=== PATIENT | male | born 1950 | race Caucasian/White ===

== ENCOUNTER 2021-03-17 09:07 | Outpatient (CLI) | payer MEDICARE, SELFPAY ==
--- NOTE | 2021-03-17 09:30 | MR_ITS ---
WS: [id number] MRI LEFT SHOULDER HISTORY: INTERNAL DERANGEMENT OF LEFT SHOULDER COMPARISON: 02/16/2021 TECHNIQUE: Multiplanar sequences of the shoulder joint are submitted. Moderate AC joint hypertrophy. Increased fluid signal along the AC ligament consistent with a tear. S oft tissue and bone hypertrophy encroaching upon the supraspinatus. Moderate amount of fluid in the s ubacromial and subdeltoid bursa. Edema within the endplates of the clavicle and adjacent acromion. No os acromion. Very small caliber biceps tendon. There is increase fluid in the biceps tendon sheath. Insertion site tear involving the distal supraspinatus tendon. Full-thickness tendon tear extending o celina a width of 12 mm. There is additional tendinopathy. Additional partial insertion site tear involv ing the inferior articular surface of the infraspinatus tendon. Subscapularis tendon is also torn. Th e very distal subscapularis tendon is of increased fluid like signal. There is mild atrophy without e mauricio involving the subscapularis muscle. Mild narrowing of the glenohumeral joint. No labral tears are appreciated. MR/MR shoulder LT wo con* [id number] IMPRESSION: 1. Full-thickness distal supraspinatus tendon tear involving the insertion sit e also. 2. Insertion site tear distal supraspinatus and also the distal infraspinatus tendon tear along the tibial surface. 3. Moderate AC joint hypertrophy with encroachment upon the supraspinatus. 4. Small caliber biceps tendon in the bicipital groove. Suspect at least a par tial tear with retraction of a portion of the tendon.
== END 2021-03-17 09:08 | disposition home or self-care (01) ==
LOC: RADSHAW 09:12
PROVIDERS: PCP Physician Assistant; Visit Provider Physician Assistant
DX: M24.812 Other specific joint derangements of left shoulder, not elsewhere classified (principal); M75.102 Unspecified rotator cuff tear or rupture of left shoulder, not specified as traumatic
CPT/HCPCS: 73221

== ENCOUNTER 2021-04-20 07:00 | Outpatient (CLI) | payer MEDICARE, SELFPAY ==
--- NOTE | 2021-04-20 07:15 | USCV_ITS ---
Ariel Lugo Age: 70 Gender: M : 1950 Exam Date: 04/20/2021 07:29 Ordering Phys: Gabriella Grover MD ([email or web address]) Technologist: Exam Location: [facility] [place] Indication: CHEST PAIN BP: 135 / 75 HR: 75 Rhythm: Sinus Technical Quality: Adequate MEASUREMENTS (Male / Female) Normal Values 2D ECHO LV Diastolic Diameter PLAX 4.7 cm 4.2 - 5.9 / 3.9 - 5.3 cm LV Systolic Diameter PLAX 2.7 cm IVS Diastolic Thickness 0.8 cm 0.6 - 1.0 / 0.6 - 0.9 cm IVS Systolic Thickness 1.4 cm LVPW Diastolic Thickness 1.1 cm 0.6 - 1.0 / 0.6 - 0.9 cm LVPW Systolic Thickness 1.6 cm LVOT Diameter 2.1 cm LV Ejection Fraction 2D Teich 69.3 % LV Ejection Fraction MOD 2C 61.2 % LV Ejection Fraction 2C AL 61.8 % LA Diameter 4.9 cm LA Width 4.7 cm LA Height 6.0 cm RA Width 4.0 cm RA Height 5.4 cm Aorta at Sinotubular Diameter 2.6 cm M-MODE LV Diastolic Diameter MM 5.1 cm 4.2 - 5.9 / 3.9 - 5.3 cm LV Systolic Diameter MM 3.2 cm LV Ejection Fraction MM Teich 67.5 % IVS Diastolic Thickness MM 0.8 cm 0.6 - 1.0 / 0.6 - 0.9 cm IVS Systolic Thickness MM 1.4 cm LVPW Diastolic Thickness MM 1.1 cm 0.6 - 1.0 / 0.6 - 0.9 cm LVPW Systolic Thickness MM 1.8 cm RV Diastolic Diameter MM 2.4 cm Aortic Annulus Diameter 3.6 cm LA Ao Ratio MM 1.5 MV E Point Septal Separation 0.8 cm DOPPLER AV Peak Velocity 139.7 cm/s LVOT Peak Velocity 88.0 cm/s AV Area Cont Eq vti 2.4 cm squared AV Area Cont Eq pk 2.2 cm squared MV Area PHT 5.0 cm squared Mitral E to A Ratio 5.0 MV E' Velocity 59.0 cm/s Mitral E to MV E' Ratio 6.7 Mitral E to LV E' Lateral Ratio 5.6 Mitral E to LV E' Septal Ratio 8.5 TR Peak Velocity 273.0 cm/s TR Peak Gradient 29.8 mmHg Right Atrial Pressure 3.0 mmHg Pulmonary Artery Systolic Pressu 32.8 mmHg PV Peak Velocity 90.0 cm/s FINDINGS Left Ventricle Normal left ventricular size. LV systolic function is normal with EF of 55-60%. No regional wall motion abnormalities. Diastolic function is indeterminate because of atrial fibrillation. Right Ventricle The right ventricle is normal in size and function. Right Atrium The right atrium is normal in size. Left Atrium The left atrium is dilated Mitral Valve Structurally normal mitral valve without significant stenosis or prolapse. There is mild to moderate mitral regurgitation. Aortic Valve Structurally normal aortic valve without significant sclerosis or stenosis. There is no aortic regurgitation. Tricuspid Valve Structurally normal tricuspid valve without significant stenosis. Mild tricuspid regurgitation. RVSP is 35-40mmHg. Mild pulmonary hypertension Pulmonic Valve Structurally normal pulmonic valve without significant stenosis. There is trace pulmonic regurgitation. Pericardium Normal pericardium without effusion. Aorta Normal ascending aorta dimension. CONCLUSIONS LV systolic function is normal with EF of 55-60% Diastolic function is indeterminate because of atrial fibrillation Mild to moderate mitral regurgitation Mild pulmonary regurgitation Trace pulmonic regurgitation No comparison studies are available Bridger Cantu MD (Electronically Signed) Final Date: 24 April 2021 17:59 S
[2021-04-20 07:22] VITALS: BMI 36.0
--- NOTE | 2021-04-20 07:22 | ECG_ITS ---
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 Interpretive Statements NAME OF STUDY: LEXISCAN SESTAMIBI STRESS TEST INDICATION: CHEST PAIN, DYSPNEA ON EXERTION, A FIB PROCEDURE: At the baseline, the blood pressure was 153/92 mm Hg with a heart rate of 73 bpm. The electrocardiogram showed atrial fibrillation, normal axis and non specific ST changes. ??? The Lexiscan was infused over a period of 20 seconds. A total of 0.4 milligrams of Lexiscan was infused. The stress phase was continued for a total of 5 minutes. Heart rate at the end of the stress phase was 81 bpm with a blood pressure of 130/81 mm Hg. The EKG at the peak infusion revealed no significant ST-T wave changes. ??? Sestamibi was injected 20 seconds after the Lexiscan infusion. ??? Blood pressure at the end of the recovery phase was 138/85 mm Hg with a heart rate of 72 beats per minute. ??? CONCLUSION: 1. No significant EKG changes with the LexiScan infusion. 2. No LexiScan induced chest pain or cardiac arrhythmia. 3. Normal blood pressure and heart rate response. 4. Sestamibi/sestamibi perfusion scan pending; see separate report. Electronically Signed On 04-25-2021 7:39:12 CDT by Gabriella Grover M.D. [email or web address]
--- NOTE | 2021-04-20 07:23 | NMCV_ITS ---
NM melissa perf SPECT r/s* [id number] Ariel Lugo Age: 70 Gender: M : 1950 Exam Date: 04/20/2021 07:23 Ordering Phys: Gabriella Grover MD ([email or web address]) Technologist: CLOVER Yu Exam Location: [facility] Indications: CHEST PAIN STRESS TEST Please see separate stress test report in [facility] for full findings IMAGE PROTOCOL Rest/Stress 1 Lexiscan Day Radiopharmaceutical Dose (mCi) Administration Site Administered by Rest: Tc-99m 10.6 IV CLOVER Burrows Sestamibi Stress:Tc-99m 32.2 IV CLOVER Burrows Sestamibi Rest: 20-Apr-2021 60 Discovery 630 Stress: 20-Apr-2021 30 Discovery 630 0.4mg Lexiscan. Images obtained in supine and prone position. SPECT RESULTS Technical Quality: Excellent Raw Data Analysis: Normal Image Corrections: No attenuation or motion correction applied Summed Stress Score: 0 Summed Rest Score: 1 Summed Difference Score: 0 PERFUSION FINDINGS Small sized perfusion abnormality of mild severity of apical anterior, apical inferior and apical lateral maciel on rest images with improved tracer uptake in stress images. This is likely suggestive of attenuation artifact. FUNCTIONAL RESULTS (calculated via Gated SPECT) Stress Image LV EF (%): 79 Stress EDV (mL):109 TID: 0.95 Stress ESV (mL):23 FUNCTIONAL FINDINGS: The left ventricle is normal in size. Transient Ischemia Dilatation of 0.95. There is normal left ventricular systolic function. The left ventricular ejection fraction is normal with a value of 79%. There is normal left ventricular wall thickening with no regional wall abnormality. Normal end diastolic and end systolic volumes. IMPRESSIONS 1. Myocardial perfusion imaging is normal. Attenuation artifact noted in apical maciel. 2. Overall left ventricular systolic function is normal without regional wall motion abnormalities. 3. The left ventricular ejection fraction is normal with a value of 79%. 4. No coronary ischemia based on this study. Gabriella Grover MD (Electronically Signed) Final Date: 23 April 2021 15:10 S
[2021-04-20] MEDS: perflutren protein-a microsphr 0.22 mg/mL SDV 3 mL IV (07:58)
[2021-04-20] MEDS: regadenoson 0.4 Mg/5 ml Syringe IVP (09:30)
[2021-04-20 13:35] VITALS: BP 141/82; PULSE 75
== END 2021-04-20 07:01 | disposition home or self-care (01) ==
LOC: US 07:07 → CDL 07:21
PROVIDERS: PCP Physician Assistant; Visit Provider Internal Medicine Cardiovascular Disease
DX: R07.9 Chest pain, unspecified (principal); I48.91 Unspecified atrial fibrillation; R06.00 Dyspnea, unspecified; I34.0 Nonrheumatic mitral (valve) insufficiency
CPT/HCPCS: 78452; 93017; A9500; C8929; J2785; Q9956

== ENCOUNTER 2021-08-16 11:57 | Outpatient (RCR) | payer MEDICARE, SELFPAY | END 2021-08-20 23:59 | disposition home or self-care (01) | LOC: SPT 11:57 | PROVIDERS: PCP Physician Assistant; Referring Provider Orthopaedic Surgery; Visit Provider Orthopaedic Surgery | DX: Z47.89 Encounter for other orthopedic aftercare (principal) | CPT/HCPCS: 97161 ==

== ENCOUNTER 2021-08-21 06:00 | Outpatient (RCR) | payer MEDICARE, SELFPAY | END 2021-09-19 23:59 | disposition home or self-care (01) | LOC: SPT 06:00 | PROVIDERS: PCP Physician Assistant; Referring Provider Orthopaedic Surgery; Visit Provider Orthopaedic Surgery | DX: Z98.890 Other specified postprocedural states (principal); S46.092D Other injury of muscle(s) and tendon(s) of the rotator cuff of left shoulder, subsequent encounter; X58.XXXD Exposure to other specified factors, subsequent encounter | CPT/HCPCS: 97110; 97140 ==

== ENCOUNTER 2021-09-20 06:00 | Outpatient (RCR) | payer MEDICARE, SELFPAY | END 2021-10-11 23:59 | disposition home or self-care (01) | LOC: SPT 06:00 | PROVIDERS: PCP Physician Assistant; Referring Provider Orthopaedic Surgery; Visit Provider Orthopaedic Surgery | DX: Z48.89 Encounter for other specified surgical aftercare (principal); M25.512 Pain in left shoulder | CPT/HCPCS: 97110 ==

== ENCOUNTER 2022-01-04 05:21 | Inpatient (IN) | payer MEDICARE, SELFPAY ==
[2022-01-04] VITALS (11 sets, daily range): BP systolic 107–138; BP diastolic 65–94; PULSE 65–95; RESP 14–18; TEMP 36.6–37; O2SAT 92–99; BMI 34.9
--- NOTE | 2022-01-04 05:33 | W.ED.CHESTPA ---
Documented by User: Van Rajan MD 01/07/22 21:26 HPI - Chest Pain General: Chief Complaint: Chest Pain Stated Complaint: Chest Pain Time Seen by Provider: 01/04/22 05:33 History of Present Illness: Mr. Lugo is a 71-year-old gentleman with significant past medical history of hypertension, hyperlipidemia, diabetes, obesity, history of atrial fibrillation on anticoagulation who presents emerged department with chest pain. Symptom onset was approximately 4 AM woke him up from sleep. He describes severe intensity pressure like a elephant sitting on his chest. There is no significant radiation. There is mild epigastric component and shortness of breath related to pain with exertion. He had been at his baseline health. Course has persisted. No other specific changes in health, exacerbating, relieving factors identified. Pertinent past history: other Onset (ago): hour(s) Timing of current episode: constant Prior episodes: No Onset: during rest Pain location: substernal Severity: severe Quality: heaviness Review of Systems General: Reports: 10 or more systems reviewed and unremarkable except in HPI and below PFSH ED PFSH: Medical History Atrial fibrillation Controlled diabetes mellitus with diabetic polyneuropathy Enlarged heart HTN (hypertension) Hyperlipidemia Family History Father Aortic valve replaced CHF (congestive heart failure) Diabetes Family/Other Diabetes Other Atrial fibrillation Denies family history of Stroke Social History Smoking and tobacco status: former smoker Quit status (tobacco): has quit using tobacco Year quit tobacco: 30 years ago Second hand smoke exposure: No Smoking risk assessment/counseling performed?: Yes Alcohol intake: current Alcohol intake frequency: holidays/special occasions only Alcohol type: beer Desire information about alcohol rehabilitation?: No Counseling given: Yes Desire information about substance/drug rehabilitation?: No Counseling given: Yes Adopted: No Caregiver/support person: No Lives independently: Yes Household members: spouse, family and children Housing: House Marital status: Number of children: 3 Number of grandchildren: 10 Highest education level completed: Some College, No Degree service: No Current occupational status: retired Current occupational exposures/hazards: No Pets and animals: Yes Pets & animals: dog(s) and bird(s) History of recent travel: No Leisure activites: exercise and fishing Sexually active: Yes Current gender identity: Male Yessy/Druze: Druze Special yessy needs: No Agree to transfusion: Yes Financial difficulty paying for basics: Not Very Hard Physical Exam Const: COMMON NORMALS: alert GENERAL APPEARANCE: ill appearing and diaphoretic HENMT: COMMON NORMALS: normocephalic and atraumatic HEAD & SCALP: normocephalic and atraumatic Eye: COMMON NORMALS: conjunctivae normal CONJUNCTIVA: Yes conjunctivae normal SCLERA: sclerae normal Neck/C-Spine: COMMON NORMALS: supple GENERAL: Yes trachea midline Resp: COMMON NORMALS: normal respiratory effort and clear to auscultation bilaterally EFFORT & INSPECTION: Yes able to speak in complete sentences AUSCULTATION: clear to auscultation bilaterally Cardio: COMMON NORMALS: regular rate and regular rhythm RATE: regular rate RHYTHM: regular rhythm GI: COMMON NORMALS: Soft to palpation PALPATION: Yes Soft to palpation and No Tenderness to palpation present (GI) PERCUSSION: normal to percussion Extremity: GENERAL: Yes normal exam except as noted and No edema Neuro: COMMON NORMALS: moves all extremities SENSORIUM/ORIENTATION: Yes alert and No Orientation impaired Psych: COMMON NORMALS: mental status grossly normal and Normal thought process present THOUGHT PROCESS: Normal thought process present Course ED course: - Patient was seen and evaluated by me at bedside - Patient placed on cardiac monitors, IV access obtained - Initial evaluation notable for ill appearance, patient is diaphoretic and in distress secondary to pain - Symptom treatment ordered - Labs notable for no leukocytosis, normal hemoglobin. Metabolic panel pending. Initial troponin 21. Remainder of labs pending - Imaging notable for no lobar consolidation or pneumothorax - Patient care handed off to morning ED physician Dr. Joyce ideation of ED evaluation. Note: Click bubbles or prepopulated presley in note writing are used for assistance with data collection and billing and are inherently more limited than narrative and other text portions of this note. Please use narrative for additional clinical history and defer to narrative/free test for any case of contradictory information. If information appears in only free text or click bubble it should be considered present or absent as reported. Please contact note process description writer for clarifications of clinical information or contradictory information. MDM is a brief summary, contradictory or erroneous seeming information should be clarified and full note should be reviewed. Vital Signs: Vital signs: Vital Signs Temperature 98.5 F 01/07/22 20:00 Pulse Rate 86 01/07/22 20:00 Respiratory Rate 20 H 01/07/22 20:00 Blood Pressure 147/97 01/07/22 20:00 Pulse Oximetry 93 01/07/22 20:00 MDM - Chest Pain Medical Decision Making 71-year-old man with hypertension, hyperlipidemia, diabetes presenting to the emergency room due to chest pain that woke him up from sleep. Patient is ill-appearing on initial exam with diaphoresis. EKG without evidence of STEMI. Laboratory studies pending at time of patient care handoff to Dr. Joyce pending completion of ED evaluation. This patient was signed out to myself Dr. Joyce by Dr. Rajan at 0600 currently waiting on lab work to results patient presents emergency department is a 71-year-old gentleman presenting to the emergency department chief complaint of midsternal chest pain with no radiation started about 4:00 this morning woke him up from sleep patient has a known history of atrial atrial fibrillation which he is on Eliquis. The patient has been worked up previously by cardiology last stress test and nuclear medicine perfusion scan was obtained last April revealing left ventricular ejection fraction 55% with mild pulmonary regurgitation trace pulmonic regurgitation and moderate mitral regurg the stress test not reveal any obvious EKG changes or any changes in the Lexiscan the nuclear medicine perfusion scan was appear to be normal with no ischemic changes. Patient is complaining of mild diaphoresis reports the pain is isolated to the middle of his sternum coming going in waves reports nothing seems to make it better or worse. Patient reports no other associated symptoms. At this time we will continue to follow notified by nursing staff patient is hypotensive 70s over 40s this was after being provided fentanyl ordered prior to my arrival. Will be bolusing the patient and will continue to follow underlying concerns of pulmonary embolism versus dissection or aneurysm are prominent we will continue to follow. Patient's CAT scans actually came back unremarkable for any cardiac or pulmonary etiology however patient was found have acute pancreatitis. Due to this will be admitted the patient to Dr. Benz for further assessment and management Medical Records I reviewed the patient's medical records. Lab Data I reviewed the patient's lab results. : 01/07/22 05:40 01/07/22 05:40 Radiology Impressions Chest X-Ray 01/04/22 05:39 IMPRESSION: No acute cardiopulmonary abnormality. Chest/Abdomen/Pelvis CTA 01/04/22 06:29 IMPRESSION: No acute findings in the chest. IMPRESSION: Acute interstitial pancreatitis. No drainable fluid collections are seen. Abdomen Ultrasound 01/04/22 09:00 IMPRESSION: Cholelithiasis without evidence of cholecystitis. Abdomen/Pelvis CT 01/07/22 09:43 IMPRESSION: 1. Acute pancreatitis. 2. Mucosal thickening of the distal stomach and duodenum are likely reactive in nature. 3. Small bilateral pleural effusions with adjacent compressive atelectasis. 4. Cholelithiasis. Laboratory Results WBC 8.9 10^3/uL (4.0-10.0) 01/04/22 05:45 RBC 4.81 10^6/uL (4.1-5.3) 01/04/22 05:45 Hgb 15.1 g/dL (11.7-16.6) 01/04/22 05:45 Hct 44.6 % (42.0-52.0) 01/04/22 05:45 MCV 92.7 fl (80-94) 01/04/22 05:45 MCH 31.4 pg (28.0-34.0) 01/04/22 05:45 MCHC 33.9 g/dL (30.0-36.0) 01/04/22 05:45 RDW 13.9 % (12.1-15.1) 01/04/22 05:45 Plt Count 172 10^3/cmm (130-400) 01/04/22 05:45 MPV 11.3 fL (7.4-10.4) H 01/04/22 05:45 Neut % (Auto) 46.9 % 01/04/22 05:45 Lymph % (Auto) 38.9 % 01/04/22 05:45 Hamlin % (Auto) 8.0 % 01/04/22 05:45 Eos % (Auto) 5.4 % 01/04/22 05:45 Baso % (Auto) 0.7 % 01/04/22 05:45 Neut # (Auto) 4.16 10^3/uL (1.8-7.7) 01/04/22 05:45 Lymph # (Auto) 3.5 10^3/uL (0.8-4.8) 01/04/22 05:45 Hamlin # (Auto) 0.7 10^3/uL (0.2-0.9) 01/04/22 05:45 Eos # (Auto) 0.5 10^3/uL (0.0-0.8) 01/04/22 05:45 Baso # (Auto) 0.1 10^3/uL (0.0-0.1) 01/04/22 05:45 Nucleated RBC % (auto) 0 % 01/04/22 05:45 Nucleated RBCs # 0.0 /100WBC 01/04/22 05:45 Sodium 133 mmol/L (136-145) L 01/04/22 06:11 Potassium 3.3 mmol/L (3.5-5.1) L 01/04/22 06:11 Chloride 95 mmol/L (98-107) L 01/04/22 06:11 Carbon Dioxide 23 mmol/L (22-29) 01/04/22 06:11 Anion Gap 18.3 (5-19) 01/04/22 06:11 BUN 17 mg/dL (8-23) 01/04/22 06:11 Creatinine 1.8 mg/dL (0.7-1.2) H 01/04/22 06:11 GFR Calculation Not Reportable 01/04/22 06:11 Glucose 160 mg/dL (65-115) H 01/04/22 06:11 Calculated Osmolality 281 mOsm/kg (285-295) L 01/04/22 06:11 Calcium 9.7 mg/dL (8.5-10.5) 01/04/22 06:11 Total Bilirubin 0.8 mg/dL (0.15-1.2) 01/04/22 06:11 AST 49 U/L (0-40) H 01/04/22 06:11 ALT 32 U/L (0-41) 01/04/22 06:11 Alkaline Phosphatase 74 IU/L (40-130) 01/04/22 06:11 Troponin T Baseline 21 ng/L (0-15) H 01/04/22 06:11 Troponin T 120 Minute 21.68 ng/L (0-15) H 01/04/22 07:47 Delta Troponin T 0.68 ABS# (0-10) 01/04/22 07:47 Troponin T Hi Sens 6Hr 16.93 ng/L (0-15) H 01/04/22 11:45 Troponin T Hi Sens 6Hr Delta -4.07 ng/L (0-12) L 01/04/22 11:45 NT-Pro-B Natriuret Pep 373 pg/mL (0-125) H 01/04/22 06:11 Total Protein 6.8 g/dL (6.6-8.7) 01/04/22 06:11 Albumin 3.9 g/dL (3.5-5.2) 01/04/22 06:11 Globulin 2.9 g/dL (1.3-4.6) 01/04/22 06:11 Triglycerides 187 mg/dL (0-150) H 01/04/22 06:11 Lipase 3636 U/L (13-60) H 01/04/22 06:11 Procalcitonin 0.07 ng/mL (0-0.5) 01/04/22 06:11 EKG Data EKG 1: I personally reviewed and interpreted this EKG as follows: EKG interpretation date: 01/04/22 EKG interpretation time: 05:35 Interpretation: Twelve-lead EKG shows a rhythm at a rate of 80 No WI interval, QRS duration 93, QTc 480. Normal axis. Interpretation: Atrial fibrillation. Discharge Plan Discharge Patient Disposition: Admitted As Inpatient Admit Provider: Kamala Benz Clinical Impression: Atypical chest pain, Acute pancreatitis Condition: Stable Coding Level of Care Code ED Associate Professor Of Geology for Chg Fwd Documented by User: Carrington Joyce 01/04/22 13:03 HPI - Chest Pain General: Chief Complaint: Chest Pain Stated Complaint: Chest Pain Time Seen by Provider: 01/04/22 05:33 PFSH ED PFSH: Medical History Atrial fibrillation Controlled diabetes mellitus with diabetic polyneuropathy Enlarged heart HTN (hypertension) Hyperlipidemia Family History Father Aortic valve replaced CHF (congestive heart failure) Diabetes Family/Other Diabetes Other Atrial fibrillation Denies family history of Stroke Social History Smoking and tobacco status: former smoker Quit status (tobacco): has quit using tobacco Year quit tobacco: 30 years ago Second hand smoke exposure: No Smoking risk assessment/counseling performed?: Yes Alcohol intake: current Alcohol intake frequency: holidays/special occasions only Alcohol type: beer Desire information about alcohol rehabilitation?: No Counseling given: Yes Desire information about substance/drug rehabilitation?: No Counseling given: Yes Adopted: No Caregiver/support person: No Lives independently: Yes Household members: spouse, family and children Housing: House Marital status: Number of children: 3 Number of grandchildren: 10 Highest education level completed: Some College, No Degree service: No Current occupational status: retired Current occupational exposures/hazards: No Pets and animals: Yes Pets & animals: dog(s) and bird(s) History of recent travel: No Leisure activites: exercise and fishing Sexually active: Yes Current gender identity: Male Yessy/Druze: Druze Special yessy needs: No Agree to transfusion: Yes Financial difficulty paying for basics: Not Very Hard Course Vital Signs: Vital signs: Vital Signs Temperature 98.5 F 01/07/22 20:00 Pulse Rate 86 01/07/22 20:00 Respiratory Rate 20 H 01/07/22 20:00 Blood Pressure 147/97 01/07/22 20:00 Pulse Oximetry 93 01/07/22 20:00 MDM - Chest Pain Medical Decision Making This patient was signed out to myself Dr. Joyce by Dr. Rajan at 0600 currently waiting on lab work to results patient presents emergency department is a 71-year-old gentleman presenting to the emergency department chief complaint of midsternal chest pain with no radiation started about 4:00 this morning woke him up from sleep patient has a known history of atrial atrial fibrillation which he is on Eliquis. The patient has been worked up previously by cardiology last stress test and nuclear medicine perfusion scan was obtained last April revealing left ventricular ejection fraction 55% with mild pulmonary regurgitation trace pulmonic regurgitation and moderate mitral regurg the stress test not reveal any obvious EKG changes or any changes in the Lexiscan the nuclear medicine perfusion scan was appear to be normal with no ischemic changes. Patient is complaining of mild diaphoresis reports the pain is isolated to the middle of his sternum coming going in waves reports nothing seems to make it better or worse. Patient reports no other associated symptoms. At this time we will continue to follow notified by nursing staff patient is hypotensive 70s over 40s this was after being provided fentanyl ordered prior to my arrival. Will be bolusing the patient and will continue to follow underlying concerns of pulmonary embolism versus dissection or aneurysm are prominent we will continue to follow. Patient's CAT scans actually came back unremarkable for any cardiac or pulmonary etiology however patient was found have acute pancreatitis. Due to this will be admitted the patient to Dr. Benz for further assessment and management Lab Data : 01/07/22 05:40 01/07/22 05:40 Radiology Impressions Chest X-Ray 01/04/22 05:39 IMPRESSION: No acute cardiopulmonary abnormality. Chest/Abdomen/Pelvis CTA 01/04/22 06:29 IMPRESSION: No acute findings in the chest. IMPRESSION: Acute interstitial pancreatitis. No drainable fluid collections are seen. Abdomen Ultrasound 01/04/22 09:00 IMPRESSION: Cholelithiasis without evidence of cholecystitis. Abdomen/Pelvis CT 01/07/22 09:43 IMPRESSION: 1. Acute pancreatitis. 2. Mucosal thickening of the distal stomach and duodenum are likely reactive in nature. 3. Small bilateral pleural effusions with adjacent compressive atelectasis. 4. Cholelithiasis. Laboratory Results WBC 8.9 10^3/uL (4.0-10.0) 01/04/22 05:45 RBC 4.81 10^6/uL (4.1-5.3) 01/04/22 05:45 Hgb 15.1 g/dL (11.7-16.6) 01/04/22 05:45 Hct 44.6 % (42.0-52.0) 01/04/22 05:45 MCV 92.7 fl (80-94) 01/04/22 05:45 MCH 31.4 pg (28.0-34.0) 01/04/22 05:45 MCHC 33.9 g/dL (30.0-36.0) 01/04/22 05:45 RDW 13.9 % (12.1-15.1) 01/04/22 05:45 Plt Count 172 10^3/cmm (130-400) 01/04/22 05:45 MPV 11.3 fL (7.4-10.4) H 01/04/22 05:45 Neut % (Auto) 46.9 % 01/04/22 05:45 Lymph % (Auto) 38.9 % 01/04/22 05:45 Hamlin % (Auto) 8.0 % 01/04/22 05:45 Eos % (Auto) 5.4 % 01/04/22 05:45 Baso % (Auto) 0.7 % 01/04/22 05:45 Neut # (Auto) 4.16 10^3/uL (1.8-7.7) 01/04/22 05:45 Lymph # (Auto) 3.5 10^3/uL (0.8-4.8) 01/04/22 05:45 Hamlin # (Auto) 0.7 10^3/uL (0.2-0.9) 01/04/22 05:45 Eos # (Auto) 0.5 10^3/uL (0.0-0.8) 01/04/22 05:45 Baso # (Auto) 0.1 10^3/uL (0.0-0.1) 01/04/22 05:45 Nucleated RBC % (auto) 0 % 01/04/22 05:45 Nucleated RBCs # 0.0 /100WBC 01/04/22 05:45 Sodium 133 mmol/L (136-145) L 01/04/22 06:11 Potassium 3.3 mmol/L (3.5-5.1) L 01/04/22 06:11 Chloride 95 mmol/L (98-107) L 01/04/22 06:11 Carbon Dioxide 23 mmol/L (22-29) 01/04/22 06:11 Anion Gap 18.3 (5-19) 01/04/22 06:11 BUN 17 mg/dL (8-23) 01/04/22 06:11 Creatinine 1.8 mg/dL (0.7-1.2) H 01/04/22 06:11 GFR Calculation Not Reportable 01/04/22 06:11 Glucose 160 mg/dL (65-115) H 01/04/22 06:11 Calculated Osmolality 281 mOsm/kg (285-295) L 01/04/22 06:11 Calcium 9.7 mg/dL (8.5-10.5) 01/04/22 06:11 Total Bilirubin 0.8 mg/dL (0.15-1.2) 01/04/22 06:11 AST 49 U/L (0-40) H 01/04/22 06:11 ALT 32 U/L (0-41) 01/04/22 06:11 Alkaline Phosphatase 74 IU/L (40-130) 01/04/22 06:11 Troponin T Baseline 21 ng/L (0-15) H 01/04/22 06:11 Troponin T 120 Minute 21.68 ng/L (0-15) H 01/04/22 07:47 Delta Troponin T 0.68 ABS# (0-10) 01/04/22 07:47 Troponin T Hi Sens 6Hr 16.93 ng/L (0-15) H 01/04/22 11:45 Troponin T Hi Sens 6Hr Delta -4.07 ng/L (0-12) L 01/04/22 11:45 NT-Pro-B Natriuret Pep 373 pg/mL (0-125) H 01/04/22 06:11 Total Protein 6.8 g/dL (6.6-8.7) 01/04/22 06:11 Albumin 3.9 g/dL (3.5-5.2) 01/04/22 06:11 Globulin 2.9 g/dL (1.3-4.6) 01/04/22 06:11 Triglycerides 187 mg/dL (0-150) H 01/04/22 06:11 Lipase 3636 U/L (13-60) H 01/04/22 06:11 Procalcitonin 0.07 ng/mL (0-0.5) 01/04/22 06:11 Discharge Plan Discharge Patient Disposition: Admitted As Inpatient Admit Provider: Demar,Wray Clinical Impression: Atypical chest pain, Acute pancreatitis Condition: Stable Coding Level of Care Code ED Associate Professor Of Geology for Sarah Kirby
--- NOTE | 2022-01-04 05:39 | ECG_ITS ---
[facility] Test Date: 2022-01-04 Pat Name: Ariel Lugo Department: Room: Gender: Male Publishing Director: : 1950 Requested By: Van Rajan Order Number: [id number] Zara MD: Henry Puente M.D. Measurements Intervals [place] Rate: 80 P: MI: QRS: 14 QRSD: 93 T: 2 QT: 414 QTc: 480 Interpretive Statements ATRIAL FIBRILLATION ABNORMAL RHYTHM ECG INTERPRETATION BASED ON A DEFAULT AGE OF 40 YEARS No previous ECG available for comparison Electronically Signed On 01-04-2022 21:44:37 CDT by Henry Puente M.D. [email or web address] [id number] f
--- NOTE | 2022-01-04 05:39 | XRR_ITS ---
PROCEDURE INFORMATION: Exam: XR Chest Exam date and time: 01/04/2022 5:39 AM Age: 71 years old Clinical indication: Dyspnea; Patient HX: SOB this am; Additional info: Chest pain TECHNIQUE: Imaging protocol: XR of the chest. Views: 1 view. COMPARISON: shoulder LT wo con* [id number] 03/17/2021 9:39 AM FINDINGS: Lungs: No focal airspace disease. Pleural spaces: Unremarkable. No pleural effusion. No pneumothorax. Heart/Mediastinum: Cardiomediastinal silhouette is within normal limits. Bones/joints: Unremarkable. XR/XR chest 1V portable [id number] IMPRESSION: No acute cardiopulmonary abnormality.
[2022-01-04 05:52] LABS: Basophils # 0.1 10^3/uL (0.0-0.1); Basophils % 0.7 %; Eosinophils # 0.5 10^3/uL (0.0-0.8); Eosinophils % 5.4 %; Hematocrit 44.6 % (42.0-52.0); Hemoglobin 15.1 g/dL (11.7-16.6); Lymphocytes # 3.5 10^3/uL (0.8-4.8); Lymphocytes % 38.9 %; Mean Corpuscular HGB Conc 33.9 g/dL (30.0-36.0); Mean Corpuscular Hemoglobin 31.4 pg (28.0-34.0); Mean Corpuscular Volume 92.7 fl (80-94); Mean Platelet Volume 11.3 fL (7.4-10.4); Monocytes # 0.7 10^3/uL (0.2-0.9); Neutrophils # 4.16 10^3/uL (1.8-7.7); Neutrophils % 46.9 %; Nucleated Red Blood Cells % 0 %; Platelet Count 172 10^3/cmm (130-400); Red Blood Count 4.81 10^6/uL (4.1-5.3); Red Cell Distribution Width 13.9 % (12.1-15.1); White Blood Count 8.9 10^3/uL (4.0-10.0)
[2022-01-04] MEDS: fentaNYL 50 mcg/mL INJ 2mL IVP (06:00)
[2022-01-04] MEDS: aspirin 81 mg Chew Tablet 324 MG PO (06:00)
[2022-01-04] MEDS: sodium chloride 0.9% 1,000 ML 999 ML IV (06:05)
--- NOTE | 2022-01-04 06:29 | CTR_ITS ---
PROCEDURE INFORMATION: Exam: CTA Chest With Contrast Exam date and time: 01/04/2022 6:29 AM Age: 71 years old Clinical indication: Cardiovascular condition or disease; Atrial fibrillation and cardiomegaly; Angina and shortness of breath; Other: Disection vs aneurism; Difficulty breathing or dyspnea and shortness of breath; Additional info: Concerns for pulmonary embolism vs aortic aneurism vs dissection / PT presents to the emergency room with feeling of bricks on his chest/ some abd / back discomfort as well. PT has HX of enlarged heart and afib TECHNIQUE: Imaging protocol: Computed tomographic angiography of the chest with contrast. 3D rendering (Not supervised by radiologist): MIP and/or 3D reconstructed images were created by the technologist. Radiation optimization: All CT scans at this facility use at least one of these dose optimization techniques: automated exposure control; mA and/or kV adjustment per patient size (includes targeted exams where dose is matched to clinical indication); or iterative reconstruction. Contrast material: OMNI 350; Contrast volume: 95 ml; Contrast route: INTRAVENOUS (IV); COMPARISON: CR (CHEST, ) 01/04/2022 5:07 AM RADIATION DOSE METRICS: Total DLP (mGy-cm): 3249.81 FINDINGS: Pulmonary arteries: Normal. No pulmonary emboli. Aorta: Unremarkable. No aortic aneurysm. No aortic dissection. Lungs: Unremarkable. No consolidation. No masses. Pleural spaces: Unremarkable. No pneumothorax. No pleural effusion. Heart: Mild cardiomegaly. Heavy coronary artery calcification. Lymph nodes: Unremarkable. No enlarged lymph nodes. Bones/joints: Unremarkable. No acute fracture. Soft tissues: Unremarkable. PROCEDURE INFORMATION: Exam: CTA Abdomen and Pelvis With Contrast Exam date and time: 01/04/2022 6:29 AM Age: 71 years old Clinical indication: Cardiovascular condition or disease; Atrial fibrillation and cardiomegaly; Angina and shortness of breath; Other: Disection vs aneurism; Difficulty breathing or dyspnea and shortness of breath; Additional info: Concerns for pulmonary embolism vs aortic aneurism vs dissection / PT presents to the emergency room with feeling of bricks on his chest/ some abd / back discomfort as well. PT has HX of enlarged heart and afib TECHNIQUE: Imaging protocol: Computed tomographic angiography of the abdomen and pelvis with contrast material. 3D rendering (Not supervised by radiologist): MIP and/or 3D reconstructed images were created by the technologist. Radiation optimization: All CT scans at this facility use at least one of these dose optimization techniques: automated exposure control; mA and/or kV adjustment per patient size (includes targeted exams where dose is matched to clinical indication); or iterative reconstruction. Contrast material: OMNI 350; Contrast volume: 95 ml; Contrast route: INTRAVENOUS (IV); COMPARISON: CR (CHEST, ) 01/04/2022 5:07 AM RADIATION DOSE METRICS: Total DLP (mGy-cm): 3249.81 FINDINGS: Aorta: Mild burden of atherosclerotic plaque in the abdominal aorta and branch vessels. No aneurysm. Celiac trunk and mesenteric arteries: No occlusion or significant stenosis. Renal arteries: No occlusion or significant stenosis. Right iliac arteries: No occlusion or significant stenosis. Left iliac arteries: No occlusion or significant stenosis. Liver: No mass. Gallbladder and bile ducts: Cholelithiasis. Pancreas: There is edema and ill-defined fluid about the pancreas. No drainable fluid collection. No main pancreatic ductal dilation. Spleen: Left upper quadrant splenule. Adrenal glands: Unremarkable. No mass. Kidneys and ureters: Unremarkable. No solid mass. No hydronephrosis. Stomach and bowel: Unremarkable. No obstruction. No mucosal thickening. Appendix: No evidence of appendicitis. Intraperitoneal space: Unremarkable. No free air. No significant fluid collection. Lymph nodes: Unremarkable. No enlarged lymph nodes. Urinary bladder: Unremarkable. No mass. Reproductive: Unremarkable as visualized. Bones/joints: No acute fracture. No dislocation. Soft tissues: Unremarkable. Other findings: There is mild stranding about the SMV. Unable to assess venous patency due to contrast bolus timing. CT/CT angio chest abdomen pelvis IMPRESSION: No acute findings in the chest. IMPRESSION: Acute interstitial pancreatitis. No drainable fluid collections are seen.
--- NOTE | 2022-01-04 06:39 | PC.NURSE ---
/blood pressures pt became diaphoretic while up to bathroom. pt was hypotensive once back in bed and VS rechecked. pt's BP at that time was 78/56. Fluids started and pt placed supine for perfusion. pt's oxygen noted to be 88-89% on RA and placed on 3L/NC and is now 98%. pt's BP improving and is currently 97/64.
[2022-01-04 06:46] LABS: Troponin(5th) Baseline 21 ng/L (0-15)
[2022-01-04 06:53] LABS: Albumin Level 3.9 g/dL (3.5-5.2); Alkaline Phosphatase 74 IU/L (40-130); Blood Urea Nitrogen 17 mg/dL (8-23); Calcium 9.7 mg/dL (8.5-10.5); Carbon Dioxide 23 mmol/L (22-29); Chloride 95 mmol/L (98-107); Globulin 2.9 g/dL (1.3-4.6); Glucose 160 mg/dL (65-115); NT Pro B Type Natriuretic Pept 373 pg/mL (0-125); Osmolality Calculated 281 mOsm/kg (285-295); Sodium 133 mmol/L (136-145); Total Bilirubin 0.8 mg/dL (0.15-1.2); Total Protein 6.8 g/dL (6.6-8.7)
[2022-01-04 06:55] LABS: Alanine Aminotransferase 32 U/L (0-41); Anion Gap 18.3 (5-19); Aspartate Amino Transferase 49 U/L (0-40); Potassium 3.3 mmol/L (3.5-5.1)
[2022-01-04] MEDS: iohexol 350 mg/mL 100 mL Btl IV (07:30)
[2022-01-04] MEDS: ondansetron 2 mg/ML SDV 2 mL 4 MG IVP ×2 (07:31→21:02)
[2022-01-04 07:32] LABS: Lipase 3636 U/L (13-60)
--- NOTE | 2022-01-04 07:39 | ECG_ITS ---
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 Measurements Intervals [place] Rate: P: SD: QRS: QRSD: T: QT: QTc: Interpretive Statements Atrial fibrillation with a controlled ventricular response rate ATYPICAL ECG WARNING: DATA QUALITY MAY AFFECT INTERPRETATION Compared to ECG 01/04/2022 05:34:48 Atrial fibrillation no longer present Electronically Signed On 01-04-2022 22:00:26 CDT by Henry Puente M.D. [email or web address] [id number]
--- NOTE | 2022-01-04 08:07 | PC.NURSE ---
pt refused pain medication
[2022-01-04 08:13] LABS: Troponin 5 2HR 21.68 ng/L (0-15)
[2022-01-04 08:20] LABS: Troponin 5 2HR Delta 0.68 ABS# (0-10)
--- NOTE | 2022-01-04 09:00 | USR_ITS ---
PROCEDURE INFORMATION: Exam: US Abdomen, Limited; Right Upper Quadrant Exam date and time: 01/04/2022 9:25 AM Age: 71 years old Clinical indication: Abdominal pain; Additional info: Acute pancreatitis with colelithiasis on CT TECHNIQUE: Imaging protocol: US abdomen. Real time ultrasound with image documentation. Limited exam focused on the right upper quadrant. COMPARISON: CT angio chest abdomen pelvis 01/04/2022 7:18 AM FINDINGS: Liver: Normal. No masses. Gallbladder: Gallstone noted. There is no gallbladder wall thickening. Negative sonographic Samaniego's sign. Common bile duct: Normal. No stones. No dilation. Pancreas: Visualized pancreas is unremarkable. Right kidney: Normal. No mass. No hydronephrosis. US/US abdomen limited [id number] IMPRESSION: Cholelithiasis without evidence of cholecystitis.
--- NOTE | 2022-01-04 11:39 | ECG_ITS ---
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 Measurements Intervals [place] Rate: 72 P: [place]: QRS: 184 QRSD: 108 T: 191 QT: 436 QTc: 477 Interpretive Statements ATRIAL FIBRILLATION POSSIBLE RIGHT VENTRICULAR HYPERTROPHY [SOME/ALL OF: PROMINENT R IN V1, LATE TRANSITION, RAD, CARMELA, SSS] LATERAL MYOCARDIAL INFARCTION , OF INDETERMINATE AGE [40+ ms Q WAVE AND/OR ST/T ABNORMALITY IN I/aVL/V5/V6] Compared to ECG 01/04/2022 06:30:40 Myocardial infarct finding now present Electronically Signed On 01-04-2022 22:02:27 CDT by Henry Puente M.D. [id number]
[2022-01-04 12:14] LABS: Troponin 5 6HR 16.93 ng/L (0-15)
--- NOTE | 2022-01-04 12:14 | PC.NURSE ---
pt declines pain medication at this time
[2022-01-04 12:20] LABS: Troponin 5 6HR Delta -4.07 ng/L (0-12)
--- NOTE | 2022-01-04 12:52 | PM.HP ---
Providers/Chief Complaint Primary Care Provider: Lissette Lucio Chief Complaint: Chest Pain History of Present Illness Ariel Lugo is a 71 year old male who presented to the hospital with chief complaint of worsening midepigastric pain. Patient is stating that he woke up around 4 AM with midepigastric pain which was radiating towards his chest. He is describing his pain as sharp pain which gets worse on any kind of movement. He has not experienced any emesis however experiencing nausea. He would not describe his pain as pressure-like sensation, about 7 months ago he had cardiac work-up stress test was negative. This time he has not experienced any diarrhea, fever change in antibiotics or his diet. No previous pancreatitis episodes. He has history of actinic keratosis. Did present to the ER for worsening of pain. He is on anticoagulating agent for his A. fib in the ER he was diagnosed with pancreatitis, potassium 3.3 Creatinine 1.8 I have started him on regular diet, potassium repleted Change Eliquis dose to low-dose Keep him on clear liquids Trend lipase Cholelithiasis without cholecystitis Concern for passage of gallstones No active signs of cholangitis He is afebrile Bilirubin is normal mild transaminases abnormality noted In the ER he was given fentanyl, normal saline, aspirin and nitroglycerin, troponin not significantly high, EKG without ischemic or infarctive changes Review of Systems Const: Reports: body aches and change in appetite Eyes: Denies: change in vision ENMT: Denies: throat pain Card: Reports: chest pain Resp: Denies: dyspnea GI: Reports: abdominal pain and nausea; Denies: vomiting : Denies: flank pain Musc: Denies: neck pain Skin/Breast: Reports: lesions Neuro: Denies: headache(s) Psych: Denies: anxiety Endo: Denies: polyuria Oneil/Lymph: Denies: easy bruising All/Imm: Denies: urticaria Medications/Allergies Home Medications Medication Instructions Recorded Confirmed Last Taken Type allopurinol 100 mg tablet 100 mg PO BID 01/24/21 01/04/22 01/03/22 History atorvastatin 80 mg tablet 80 mg PO BEDTIME 01/24/21 01/04/22 01/03/22 History glipizide 10 mg tablet 10 mg PO QAM 01/24/21 01/04/22 01/03/22 History famotidine 40 mg tablet 40 mg PO DAILY 02/27/21 01/04/22 01/03/22 History lisinopril 20 1 tab PO BID 02/27/21 01/04/22 Unknown History mg-hydrochlorothiazide 12.5 mg tablet atenolol 100 mg tablet 100 mg PO QAM tab 02/28/21 01/04/22 01/03/22 History Diabetic shoes with 3 sets insoles #1 ea 07/25/21 01/04/22 Unknown Rx insulin NPH isoph U-100 human 100 See Rx Instructions SUBCUT BID 11/29/21 01/04/22 01/04/22 History unit/mL (3 mL) subcutaneous pen (Humulin N NPH U-100 Insulin KwikPen) potassium chloride 10 mEq 20 meq PO DAILY cap 11/29/21 01/04/22 Unknown History capsule,extended release Vitamin B-12 1 tab PO DAILY 01/04/22 01/04/22 Unknown History Vitamin D3 1 cap PO DAILY 01/04/22 01/04/22 Unknown History amlodipine 5 mg tablet 5 mg PO DAILY 01/04/22 01/04/22 01/03/22 History apixaban 5 mg tablet (Eliquis) 5 mg PO BID 01/04/22 01/04/22 01/03/22 History ascorbic acid (vitamin C) 500 mg 500 mg PO DAILY 01/04/22 01/04/22 Unknown History tablet (Vitamin C) multivitamin 1 tab PO DAILY 01/04/22 01/04/22 Unknown History terazosin 10 mg capsule 10 mg PO BEDTIME 01/04/22 01/04/22 Unknown History Allergies Allergy/AdvReac Type Severity Reaction Status Date / Time No Known Allergies Allergy Verified 01/04/22 11:07 PFSH Acute PFSH: Medical History Atrial fibrillation Controlled diabetes mellitus with diabetic polyneuropathy Enlarged heart HTN (hypertension) Hyperlipidemia Family History Father Aortic valve replaced CHF (congestive heart failure) Diabetes Family/Other Diabetes Other Atrial fibrillation Denies family history of Stroke Social History Smoking and tobacco status: former smoker Quit status (tobacco): has quit using tobacco Year quit tobacco: 30 years ago Second hand smoke exposure: No Smoking risk assessment/counseling performed?: Yes Alcohol intake: current Alcohol intake frequency: holidays/special occasions only Alcohol type: beer Desire information about alcohol rehabilitation?: No Counseling given: Yes Desire information about substance/drug rehabilitation?: No Counseling given: Yes Adopted: No Caregiver/support person: No Lives independently: Yes Household members: spouse, family and children Housing: House Marital status: Number of children: 3 Number of grandchildren: 10 Highest education level completed: Some College, No Degree service: No Current occupational status: retired Current occupational exposures/hazards: No Pets and animals: Yes Pets & animals: dog(s) and bird(s) History of recent travel: No Leisure activites: exercise and fishing Sexually active: Yes Current gender identity: Male Yessy/Latter Day: Shinto Special yessy needs: No Agree to transfusion: Yes Financial difficulty paying for basics: Not Very Hard Vitals/I&O/Wt Last Vital Signs Temp 97.9 F 01/04/22 05:25 Pulse 78 01/04/22 12:11 Resp 18 01/04/22 12:11 BP 125/85 01/04/22 12:11 Pulse Ox 96 01/04/22 12:11 Weight last 48 hrs Weight 104.326 kg Physical Exam Narrative: male Local tenderness midepigastric region Euvolemic Obese Laying flat Nonfocal neuro exam EOMI, PERRLA Actinic keratosis On room air Saturating well Hemodynamically stable No signs of edema S1, [id number] Data : 01/04/22 05:45 01/04/22 06:11 A&P Assessment and plan (1) Atypical chest pain: Status: Acute (2) Acute pancreatitis: Status: Acute (3) Controlled diabetes mellitus with diabetic polyneuropathy: Status: Acute Qualifiers: Diabetes mellitus type: type 2 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 mellitus 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: without regional intermodal truck driver 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 Qualified Code(s): E11.42 - Type 2 diabetes mellitus with diabetic polyneuropathy (4) [place], bilateral: Status: Acute Plan Acute pancreatitis Cholelithiasis suspicion is high for passage of gallstone which could have caused pancreatic inflammation, no CBD dilation No signs of cholangitis Check triglyceride as she is diabetic If triglycerides above 500 he will need insulin along D5, he will need ICU management I would not add any antibiotics for now Start lactic ringer, Hypokalemia: Repleted Hold amlodipine and allopurinol IV fluid hydration Dilaudid for analgesia Keep her on clear liquids Trend lipase level Is symptoms are related to pancreatitis, troponins without significant delta EKG without ischemic or infarctive changes Full code Clear liquid diet Actinic keratosis without acute exacerbation A. 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
[2022-01-04 13:43] LABS: Procalcitonin 0.07 ng/mL (0-0.5)
[2022-01-04 18:21] LABS: Triglycerides 187 mg/dL (0-150)
[2022-01-04] MEDS: lidocaine 1% 5 ML in potassium chloride premix 100 ML 25 ML IV (20:53)
[2022-01-04] MEDS: lactated ringers 1,000 ML 100 ML IV (20:55)
[2022-01-04] MEDS: pantoprazole 40 mg SDV IVP (21:01)
[2022-01-04] MEDS: terazosin 5 mg Capsule 10 MG PO (21:01)
[2022-01-04] MEDS: apixaban 5 mg Tablet 2.5 MG PO (21:02)
[2022-01-04] MEDS: HYDROmorphone 1 mg/mL INJ 1 mL 0.4 MG IVP (21:21)
[2022-01-05] VITALS (9 sets, daily range): BP systolic 104–155; BP diastolic 71–90; PULSE 59–104; RESP 14–18; TEMP 36.3–37.2; O2SAT 90–95
[2022-01-05 05:23] LABS: Basophils % 0.1 %; Eosinophils % 0.1 %; Hematocrit 46.6 % (42.0-52.0); Hemoglobin 15.9 g/dL (11.7-16.6); Lymphocytes # 0.8 10^3/uL (0.8-4.8); Lymphocytes % 5.7 %; Mean Corpuscular HGB Conc 34.1 g/dL (30.0-36.0); Mean Corpuscular Hemoglobin 31.6 pg (28.0-34.0); Mean Corpuscular Volume 92.6 fl (80-94); Mean Platelet Volume 11.2 fL (7.4-10.4); Monocytes # 0.8 10^3/uL (0.2-0.9); Monocytes % 5.9 %; Neutrophils # 12.58 10^3/uL (1.8-7.7); Neutrophils % 87.9 %; Nucleated Red Blood Cells % 0 %; Platelet Count 173 10^3/cmm (130-400); Red Blood Count 5.03 10^6/uL (4.1-5.3); Red Cell Distribution Width 14.4 % (12.1-15.1); White Blood Count 14.3 10^3/uL (4.0-10.0)
[2022-01-05 05:45] LABS: Alanine Aminotransferase 27 U/L (0-41); Albumin Level 3.9 g/dL (3.5-5.2); Alkaline Phosphatase 75 IU/L (40-130); Aspartate Amino Transferase 31 U/L (0-40); Blood Urea Nitrogen 23 mg/dL (8-23); Calcium 9.4 mg/dL (8.5-10.5); Carbon Dioxide 25 mmol/L (22-29); Chloride 97 mmol/L (98-107); Globulin 2.7 g/dL (1.3-4.6); Glucose 182 mg/dL (65-115); Lipase 214 U/L (13-60); Magnesium 1.8 mg/dL (1.7-2.3); Osmolality Calculated 288 mOsm/kg (285-295); Sodium 135 mmol/L (136-145); Total Bilirubin 1.2 mg/dL (0.15-1.2); Total Protein 6.6 g/dL (6.6-8.7)
[2022-01-05] MEDS: lactated ringers 1,000 ML 100 ML IV ×3 (06:21→23:38)
[2022-01-05] MEDS: pantoprazole 40 mg SDV IVP ×2 (08:28→16:39)
[2022-01-05] MEDS: apixaban 5 mg Tablet 2.5 MG PO ×2 (08:29→16:38)
[2022-01-05] MEDS: ascorbic acid 500 mg Tablet PO (08:29)
[2022-01-05] MEDS: famotidine 20 mg Tablet 40 MG PO (08:29)
[2022-01-05] MEDS: HYDROmorphone 1 mg/mL INJ 1 mL 0.4 MG IVP (08:37)
--- NOTE | 2022-01-05 10:48 | PC.CHAP ---
Pastoral Care Encounter/Spiritual Assessment Type of Contact [] Declined supervisor tan room visit [] Patient/Family/Request visit [] Outpatient visit [] Follow-up visit [] Physician referral [] Code/Alert [x] Routine visit [] Staff referral [] Actively dying [x] Patient sleeping [] Family support [] [] Out of room [] Palliative care [] [] Receiving care in room [] Pre-surgical visit [] Trauma [] Long length of stay [] ICU visit [] Other: Relational/Emotional Strength [] Patient feels connected with others/family/visitors/staff [] Distress [] Loneliness/isolation [] Abandonment Spirituality of Patient [] Person of Yessy [] Attends Sabianism of their Yessy [] Believes in Prayer [] Reads Bible or Mandaen materials [] There are Spiritual issues to be addressed Turbine Technician Interventions [] Prayer [] Active listening [] Non-anxious presence [] Spiritual/emotional support [] Crisis/trauma care [] Spiritual counseling [] Bereavement support [] Provided bereavement packet [] Provided Bible/devotional materials [] Provided toy/stuffed animal, coloring book to patient or family member [] Provided Communion [] Anointing/[place] [] Salvation [] Completed spiritual assessment [] Other: Impact on Illness or Injury [] Angry [] Fearful [] Anxious [] Often cries [] Exhaustion [] Unable to work [] Unable to attend alevism [] Unable to walk/stand [] Unable to read [] Unable to drive [] Unable to eat/drink [] Unable to sleep [] Unable to be with family [] Patient intubated [] Other: Summary Time spent with patient
--- NOTE | 2022-01-05 12:36 | P.PN_ITS ---
Subjective Subjective: Patient was seen this morning, he continues to complain of epigastric discomfort, pain radiating to his back, nausea after his morning liquid breakfast, abdomen is bit more distended Vitals/I&O/Wt Last Vital Signs Temp 98.7 F 01/05/22 11:27 Pulse 99 01/05/22 11:27 Resp 16 01/05/22 11:27 BP 143/90 01/05/22 11:27 Pulse Ox 91 01/05/22 11:27 01/04/22 01/05/22 01/05/22 22:59 06:59 14:59 Intake Total 1048.333 / 1048.333 480 / 480 Balance 1048.333 / 1048.333 480 / 480 Weight last 48 hrs Weight 104.326 kg Physical Exam Const: COMMON NORMALS: no acute distress and patient oriented x3 Resp: COMMON NORMALS: normal respiratory effort, No retractions, No use of accessory muscles and clear to auscultation bilaterally AUSCULTATION: clear to auscultation bilaterally Cardio: COMMON NORMALS: regular rate, regular rhythm, S1 normal heart sound present and S2 normal heart sound present RATE: regular rate RHYTHM: regular rhythm HEART SOUNDS: S1 normal heart sound present and S2 normal heart sound present GI: COMMON NORMALS: Normal to inspection, nondistended, normoactive bowel sounds present AUSCULTATION: Yes Hypoactive bowel sounds present PALPATION: Yes Tenderness to palpation present (GI) (Epigastric discomfort) Extremity: COMMON NORMALS: no pedal edema Neuro: COMMON NORMALS: patient oriented x3 Data : 01/05/22 04:51 01/05/22 04:51 A&P Assessment and plan (1) Atypical chest pain: Status: Acute (2) Acute pancreatitis: Status: Acute (3) Controlled diabetes mellitus with diabetic polyneuropathy: Status: Acute Qualifiers: Diabetes mellitus type: type 2 Diabetes mellitus penitentiary insulin use: without penitentiary use Qualified Code(s): E11.42 - Type 2 diabetes mellitus with diabetic polyneuropathy (4) [place], bilateral: Status: Acute Plan Acute pancreatitis Cholelithiasis suspicion is high for passage of gallstone which could have caused pancreatic inflammation, no CBD dilation No signs of cholangitis Triglycerides triglycerides 187 Hold off on antibiotics Continue IV fluids Hypokalemia: Repleted Hold amlodipine and allopurinol IV fluid hydration Dilaudid for analgesia N.p.o. Trend lipase Will consider doing a repeat CT scan in 24 to 48 hours if symptoms persist beyond being n.p.o. for the next 24 hours we will consider starting TPN Full code Clear liquid diet Actinic keratosis without acute exacerbation A. 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
[2022-01-05] MEDS: terazosin 5 mg Capsule 10 MG PO (20:22)
[2022-01-06] VITALS (7 sets, daily range): BP systolic 125–166; BP diastolic 73–97; PULSE 76–118; RESP 16–20; TEMP 36.6–37.3; O2SAT 91–94
[2022-01-06 05:58] LABS: Basophils % 0.3 %; Eosinophils % 0.2 %; Hematocrit 45.1 % (42.0-52.0); Hemoglobin 14.9 g/dL (11.7-16.6); Lymphocytes # 1.3 10^3/uL (0.8-4.8); Lymphocytes % 10.1 %; Mean Corpuscular Hemoglobin 31.2 pg (28.0-34.0); Mean Corpuscular Volume 94.5 fl (80-94); Mean Platelet Volume 11.4 fL (7.4-10.4); Monocytes # 1.1 10^3/uL (0.2-0.9); Monocytes % 9.1 %; Neutrophils # 10.08 10^3/uL (1.8-7.7); Nucleated Red Blood Cells % 0 %; Platelet Count 143 10^3/cmm (130-400); Red Blood Count 4.77 10^6/uL (4.1-5.3); Red Cell Distribution Width 14.4 % (12.1-15.1); White Blood Count 12.6 10^3/uL (4.0-10.0)
[2022-01-06 06:18] LABS: Alanine Aminotransferase 22 U/L (0-41); Albumin Level 3.5 g/dL (3.5-5.2); Alkaline Phosphatase 69 IU/L (40-130); Anion Gap 14.9 (5-19); Aspartate Amino Transferase 25 U/L (0-40); Blood Urea Nitrogen 23 mg/dL (8-23); C Reactive Protein 84.9 mg/L (0.0-4.9); Calcium 9.3 mg/dL (8.5-10.5); Carbon Dioxide 24 mmol/L (22-29); Chloride 99 mmol/L (98-107); Globulin 2.8 g/dL (1.3-4.6); Glucose 171 mg/dL (65-115); Lipase 91 U/L (13-60); Magnesium 1.9 mg/dL (1.7-2.3); Osmolality Calculated 286 mOsm/kg (285-295); Phosphorus 2.1 mg/dL (2.5-4.5); Potassium 3.9 mmol/L (3.5-5.1); Sodium 134 mmol/L (136-145); Total Bilirubin 1.7 mg/dL (0.15-1.2); Total Protein 6.3 g/dL (6.6-8.7)
[2022-01-06] MEDS: ascorbic acid 500 mg Tablet PO (08:14)
[2022-01-06] MEDS: apixaban 5 mg Tablet 2.5 MG PO ×2 (08:15→18:00)
[2022-01-06] MEDS: phosphorus 250 mg Tablet 500 MG PO (08:15)
[2022-01-06] MEDS: famotidine 20 mg Tablet 40 MG PO (08:15)
[2022-01-06] MEDS: pantoprazole 40 mg SDV IVP ×2 (08:16→17:59)
[2022-01-06] MEDS: magnesium sulfate premix 2 GM/50 ML PIGGYBACK IV (08:16)
[2022-01-06] MEDS: lactated ringers 1,000 ML 100 ML IV ×2 (08:29→21:13)
--- NOTE | 2022-01-06 09:18 | PM.PN ---
Subjective Subjective: Patient was seen this morning, he tells me that he had a good night, continues to have epigastric discomfort, bloating sensation, has not had a bowel movement, no fevers overnight, Vitals/I&O/Wt Last Vital Signs Temp 97.8 F 01/06/22 07:50 Pulse 76 01/06/22 08:16 Resp 20 H 01/06/22 08:16 BP 141/97 01/06/22 07:50 Pulse Ox 94 01/06/22 08:16 01/05/22 01/06/22 01/06/22 22:59 06:59 14:59 Intake Total 800 / 2235 888.333 / 888.333 Balance 800 / 2235 888.333 / 888.333 Physical Exam Const: COMMON NORMALS: no acute distress and patient oriented x3 Resp: COMMON NORMALS: normal respiratory effort, No retractions, No use of accessory muscles and clear to auscultation bilaterally AUSCULTATION: clear to auscultation bilaterally Cardio: COMMON NORMALS: regular rate, regular rhythm, S1 normal heart sound present and S2 normal heart sound present RATE: regular rate RHYTHM: regular rhythm HEART SOUNDS: S1 normal heart sound present and S2 normal heart sound present GI: COMMON NORMALS: Normal to inspection, nondistended, normoactive bowel sounds present PALPATION: Yes Tenderness to palpation present (GI) (In the epigastrium) Extremity: COMMON NORMALS: no pedal edema Neuro: COMMON NORMALS: patient oriented x3 Data : 01/06/22 05:09 01/06/22 05:09 A&P Assessment and plan (1) Atypical chest pain: Status: Acute (2) Acute pancreatitis: Status: Acute (3) Controlled diabetes mellitus with diabetic polyneuropathy: Status: Acute Qualifiers: Diabetes mellitus type: type 2 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 Trend lipase Will consider doing a repeat CT scan in 24 to 48 hours if symptoms persist beyond being n.p.o. for the next 24 hours we will consider starting TPN Full code Continue n.p.o. Actinic keratosis without acute exacerbation A. fib without RVR, CKD, I do not have his baseline creatinine, decrease the dose of Eliquis Attestations Medical Necessity Statement*: Patient requires hospitalization for pancreatitis Coding Level of Care Code Acute Data Center Consultant for [facility] Fw Diagnoses Atypical chest pain R07.89 Acute pancreatitis K85.90 Controlled diabetes mellitus with diabetic polyneuropathy E11.42 Diabetes mellitus type: type 2 Diabetes mellitus residential insulin use: without residential use [place], bilateral M20.41; M20.42
--- NOTE | 2022-01-06 17:50 | ECG_ITS ---
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 Measurements Intervals [place] Rate: 127 P: [place]: QRS: 12 QRSD: 97 T: 31 QT: 317 QTc: 462 Interpretive Statements ATRIAL FIBRILLATION WITH RAPID VENTRICULAR RESPONSE NONSPECIFIC T-WAVE ABNORMALITY ABNORMAL RHYTHM ECG Compared to ECG 01/04/2022 10:37:31 T-wave abnormality now present Atrial abnormality no longer present Myocardial infarct finding no longer present Electronically Signed On 01-07-2022 17:44:04 CDT by Henry Puente M.D. [id number]
[2022-01-06] MEDS: metoprolol tartrate 25 mg Tablet 12.5 MG PO (17:59)
[2022-01-06] MEDS: metoprolol tartrate 25 mg Tablet PO (21:13)
[2022-01-06] MEDS: terazosin 5 mg Capsule 10 MG PO (21:13)
[2022-01-07] VITALS (7 sets, daily range): BP systolic 105–169; BP diastolic 65–97; PULSE 76–125; RESP 18–20; TEMP 36.7–37.1; O2SAT 89–95
[2022-01-07 06:21] LABS: Basophils % 0.3 %; Eosinophils # 0.2 10^3/uL (0.0-0.8); Eosinophils % 1.9 %; Hematocrit 43.3 % (42.0-52.0); Hemoglobin 14.5 g/dL (11.7-16.6); Lymphocytes # 1.5 10^3/uL (0.8-4.8); Mean Corpuscular HGB Conc 33.5 g/dL (30.0-36.0); Mean Corpuscular Hemoglobin 31.3 pg (28.0-34.0); Mean Corpuscular Volume 93.5 fl (80-94); Mean Platelet Volume 11.6 fL (7.4-10.4); Monocytes # 1.1 10^3/uL (0.2-0.9); Monocytes % 9.4 %; Nucleated Red Blood Cells % 0 %; Platelet Count 142 10^3/cmm (130-400); Red Blood Count 4.63 10^6/uL (4.1-5.3); Red Cell Distribution Width 14.4 % (12.1-15.1); White Blood Count 11.3 10^3/uL (4.0-10.0)
[2022-01-07 06:39] LABS: Alanine Aminotransferase 19 U/L (0-41); Albumin Level 3.4 g/dL (3.5-5.2); Alkaline Phosphatase 77 IU/L (40-130); Anion Gap 11.6 (5-19); Aspartate Amino Transferase 27 U/L (0-40); Blood Urea Nitrogen 23 mg/dL (8-23); C Reactive Protein 101.2 mg/L (0.0-4.9); Calcium 8.6 mg/dL (8.5-10.5); Carbon Dioxide 23 mmol/L (22-29); Chloride 97 mmol/L (98-107); Creatinine Clr Calc Pharmacy 65.1434; Glucose 142 mg/dL (65-115); Lipase 104 U/L (13-60); Magnesium 2.1 mg/dL (1.7-2.3); Osmolality Calculated 272 mOsm/kg (285-295); Phosphorus 1.8 mg/dL (2.5-4.5); Potassium 3.6 mmol/L (3.5-5.1); Sodium 128 mmol/L (136-145); Total Bilirubin 1.6 mg/dL (0.15-1.2); Total Protein 6.4 g/dL (6.6-8.7)
[2022-01-07] MEDS: lactated ringers 1,000 ML 100 ML IV (07:55)
[2022-01-07] MEDS: apixaban 5 mg Tablet 2.5 MG PO (07:56)
[2022-01-07] MEDS: ascorbic acid 500 mg Tablet PO (07:56)
[2022-01-07] MEDS: metoprolol tartrate 25 mg Tablet PO ×2 (07:56→17:48)
[2022-01-07] MEDS: pantoprazole 40 mg SDV IVP ×2 (07:57→17:49)
--- NOTE | 2022-01-07 09:43 | CTR_ITS ---
PROCEDURE INFORMATION: Exam: CT Abdomen And Pelvis With Contrast Exam date and time: 01/07/2022 11:39 AM Age: 71 years old Clinical indication: Condition or disease; Pancreatic condition; Pancreatitis TECHNIQUE: Imaging protocol: Computed tomography of the abdomen and pelvis with contrast. Radiation optimization: All CT scans at this facility use at least one of these dose optimization techniques: automated exposure control; mA and/or kV adjustment per patient size (includes targeted exams where dose is matched to clinical indication); or iterative reconstruction. Contrast material: OMNIPAQUE 300; Contrast volume: 95 ml; Contrast route: INTRAVENOUS (IV); COMPARISON: CT angio chest abdomen pelvis 01/04/2022 7:18 AM RADIATION DOSE METRICS: Total DLP (mGy-cm): 1889.88 FINDINGS: Pleural spaces: Small bilateral pleural effusions with adjacent compressive atelectasis. Liver: Normal. No mass. Gallbladder and bile ducts: Cholelithiasis. Pancreas: There is diffuse peripancreatic inflammatory stranding and fluid, consistent with acute pancreatitis.There are calcifications in the pancreas consistent with chronic pancreatitis change as well. Spleen: Normal. No splenomegaly. Adrenal glands: Normal. No mass. Kidneys and ureters: Normal. No hydronephrosis. Stomach and bowel: There is mucosal thickening of the distal stomach and duodenum, likely reactive in nature as these are adjacent to the pancreatic pathology. Appendix: No evidence of appendicitis. Intraperitoneal space: There is a small amount of free intraperitoneal fluid. Vasculature: Unremarkable. No abdominal aortic aneurysm. Lymph nodes: Unremarkable. No enlarged lymph nodes. Urinary bladder: Unremarkable as visualized. Reproductive: Unremarkable as visualized. Bones/joints: Unremarkable. No acute fracture. Soft tissues: Unremarkable. CT/CT abdomen pelvis w con* [id number] IMPRESSION: 1. Acute pancreatitis. 2. Mucosal thickening of the distal stomach and duodenum are likely reactive in nature. 3. Small bilateral pleural effusions with adjacent compressive atelectasis. 4. Cholelithiasis.
[2022-01-07] MEDS: apixaban 5 mg Tablet PO ×2 (10:35→17:48)
[2022-01-07] MEDS: sodium chloride 0.9% 1,000 ML 125 ML IV (10:36)
--- NOTE | 2022-01-07 11:13 | PC.SOCIAL ---
IMM update IMM updated with patient. Verbalized an understanding. Copy Pg 2 provided. Initialled, dated, timed, and placed in chart.
--- NOTE | 2022-01-07 11:29 | PM.PN ---
Subjective Subjective: This morning patient was seen, sitting up into a chair, playing crossword puzzle, he tells me that he had trouble falling asleep throughout the night, still has abdominal discomfort, and bloating, but he does feel overall better, no fevers overnight, no nausea, no vomiting Vitals/I&O/Wt Last Vital Signs Temp 98.1 F 01/07/22 08:00 Pulse 88 01/07/22 08:00 Resp 18 01/07/22 08:00 BP 105/65 01/07/22 08:00 Pulse Ox 93 01/07/22 08:00 01/06/22 01/07/22 01/07/22 22:59 06:59 14:59 Intake Total 996.667 / 1935.000 775 / 2710.000 225 / 225 Output Total 300 / 300 Balance 696.667 / 1635.000 775 / 2410.000 225 / 225 Physical Exam Const: COMMON NORMALS: no acute distress and patient oriented x3 Resp: COMMON NORMALS: normal respiratory effort, No retractions, No use of accessory muscles and clear to auscultation bilaterally AUSCULTATION: clear to auscultation bilaterally Cardio: COMMON NORMALS: regular rate, regular rhythm, S1 normal heart sound present and S2 normal heart sound present RATE: regular rate RHYTHM: regular rhythm HEART SOUNDS: S1 normal heart sound present and S2 normal heart sound present GI: COMMON NORMALS: Soft to palpation INSPECTION: Yes abdominal distension AUSCULTATION: Yes Hypoactive bowel sounds present PALPATION: Yes Soft to palpation, Yes Tenderness to palpation present (GI) (Epigastric tenderness), No Guarding due to palpation present (GI) and No Rigid due to palpation Extremity: COMMON NORMALS: no pedal edema Neuro: COMMON NORMALS: patient oriented x3 Data : 01/07/22 05:40 01/07/22 05:40 A&P Assessment and plan (1) Atypical chest pain: Status: Acute (2) Acute pancreatitis: Status: Acute (3) Controlled diabetes mellitus with diabetic polyneuropathy: Status: Acute Qualifiers: Diabetes mellitus type: type 2 Diabetes mellitus 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 Trend lipase Abdominal pain persist, continues to be distended, lipase and CRP upward trending, will do's CT scan abdomen pelvis Will consider peripheral nutrition based on CAT scan Full code Continue n.p.o. Actinic keratosis without acute exacerbation A. 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
[2022-01-07] MEDS: iohexol 300 mg/mL 100 mL Btl IV (11:38)
[2022-01-07] MEDS: terazosin 5 mg Capsule 10 MG PO (21:59)
[2022-01-08] VITALS (8 sets, daily range): BP systolic 107–148; BP diastolic 71–85; PULSE 70–112; RESP 16–20; TEMP 36.4–37.5; O2SAT 92–95
[2022-01-08 05:08] LABS: Basophils # 0.1 10^3/uL (0.0-0.1); Basophils % 0.4 %; Eosinophils # 0.3 10^3/uL (0.0-0.8); Eosinophils % 2.5 %; Hematocrit 41.5 % (42.0-52.0); Hemoglobin 14.3 g/dL (11.7-16.6); Lymphocytes # 1.8 10^3/uL (0.8-4.8); Lymphocytes % 15.8 %; Mean Corpuscular HGB Conc 34.5 g/dL (30.0-36.0); Mean Corpuscular Hemoglobin 31.8 pg (28.0-34.0); Mean Corpuscular Volume 92.4 fl (80-94); Mean Platelet Volume 11.1 fL (7.4-10.4); Monocytes # 1.1 10^3/uL (0.2-0.9); Monocytes % 9.5 %; Neutrophils % 71.4 %; Nucleated Red Blood Cells % 0 %; Platelet Count 163 10^3/cmm (130-400); Red Blood Count 4.49 10^6/uL (4.1-5.3); Red Cell Distribution Width 14.1 % (12.1-15.1); White Blood Count 11.5 10^3/uL (4.0-10.0)
[2022-01-08 05:31] LABS: Alanine Aminotransferase 20 U/L (0-41); Albumin Level 3.2 g/dL (3.5-5.2); Alkaline Phosphatase 89 IU/L (40-130); Anion Gap 11.4 (5-19); Aspartate Amino Transferase 24 U/L (0-40); Blood Urea Nitrogen 22 mg/dL (8-23); C Reactive Protein 79.1 mg/L (0.0-4.9); Calcium 8.7 mg/dL (8.5-10.5); Carbon Dioxide 22 mmol/L (22-29); Chloride 98 mmol/L (98-107); Glucose 151 mg/dL (65-115); Lipase 92 U/L (13-60); Magnesium 2.2 mg/dL (1.7-2.3); Osmolality Calculated 272 mOsm/kg (285-295); Phosphorus 2.4 mg/dL (2.5-4.5); Potassium 3.4 mmol/L (3.5-5.1); Sodium 128 mmol/L (136-145); Total Protein 6.2 g/dL (6.6-8.7)
--- NOTE | 2022-01-08 06:16 | PC.NURSE ---
IV Infiltration Patient IV to right forearm infiltrated. IV removed, and 2x2 dressing placed. Arm elevated on pillows and heat pack placed. Pulses intact and patient has no reports of numbness or tingling, good ROM.
[2022-01-08] MEDS: sodium chloride 0.9% 1,000 ML 50 ML IV (06:39)
[2022-01-08 07:56] LABS: Glucose Point of Care 164 mg/dL (70-110)
[2022-01-08] MEDS: ascorbic acid 500 mg Tablet PO (09:02)
[2022-01-08] MEDS: pantoprazole 40 mg SDV IVP ×2 (09:02→18:15)
[2022-01-08] MEDS: metoprolol tartrate 25 mg Tablet PO (09:02)
[2022-01-08] MEDS: apixaban 5 mg Tablet PO ×2 (09:03→18:16)
[2022-01-08 10:43] LABS: Glucose Point of Care 155 mg/dL (70-110)
[2022-01-08 12:53] LABS: Iron 38 ug/dL (59-158); Total Iron Binding Capacity 199 mcg/dl; Unsaturated Iron Binding 161 ug/dL (112-347)
[2022-01-08 13:03] LABS: Thyroid Stimulating Hormone 1.56 uIU/mL (0.27-4.20)
[2022-01-08] MEDS: atenolol 50 mg Tablet 100 MG PO (13:14)
--- NOTE | 2022-01-08 14:29 | PM.PN ---
Subjective Subjective: Hospital course, labs appreciated. Examination patient lying comfortably in bed with TPN at 50 cc and fluid 50 cc running. Patient denies of any nausea or vomiting. Did have mild abdominal fullness on taking oral medications. Denies abdominal pain. Vitals/I&O/Wt Last Vital Signs Temp 99.5 F 01/08/22 12:00 Pulse 70 01/08/22 12:00 Resp 16 01/08/22 12:00 BP 121/74 01/08/22 12:00 Pulse Ox 94 01/08/22 12:00 01/07/22 01/08/22 01/08/22 22:59 06:59 14:59 Intake Total 1104.667 / 1329.667 145 / 1474.667 Balance 1104.667 / 1329.667 145 / 1474.667 Physical Exam Narrative: male Local tenderness midepigastric region Euvolemic Obese Laying flat Nonfocal neuro exam EOMI, PERRLA Actinic keratosis On room air Saturating well Hemodynamically stable No signs of edema S1, S1Esylsthr Data : 01/08/22 04:45 01/08/22 04:45 A&P Assessment and plan (1) Atypical chest pain: Status: Acute (2) Acute pancreatitis: Status: Acute (3) Controlled diabetes mellitus with diabetic polyneuropathy: Status: Acute Qualifiers: Diabetes mellitus type: type 2 Diabetes mellitus watermaster insulin use: without watermaster use Qualified Code(s): E11.42 - Type 2 diabetes mellitus with diabetic polyneuropathy (4) Hammertoe, bilateral: Status: Acute Plan Acute pancreatitis: Secondary to cholelithiasis. No suspicion of obstruction. No severe dilatation. Triglyceride 187. Lipase normal. Alkaline phosphatase normal. Continue with TPN and IV fluids. Start on clear liquid diet. Discussed in detail with patient regarding multiple small meals. Discussed about very gradual slow advancement of diet going further. Protonix, Zofran. Dilaudid 0.5 every 6 hours for pain. Hypertension: Goal blood pressure less than 140/90 mmHg. On multiple antihypertensives include including Atenol 100, amlodipine 5, lisinopril 20, hydrochlorothiazide 12.5 twice daily at home. Blood pressure controlled currently. Continue bilateral lower 100 mg daily to prevent tachycardia. Atrial fibrillation with rapid ventricular response: Adrenal as above. Continue to monitor. Continue with Eliquis 5 mg twice daily. Type 2 diabetes mellitus. History of CKD. Full code. Clear liquid diet. Protonix for PUD prophylaxis. Eliquis will suffice for DVT prophylaxis. Attestations Medical Necessity Statement*: Requires further hospitalization for management of pancreatitis while diet is gradually advanced, pain control Time Spent in Patient Care: Greater than 35 minutes Coding Level of Care Code Acute Manager Staffing for [facility] Diagnoses Atypical chest pain R07.89 Acute pancreatitis K85.90 Controlled diabetes mellitus with diabetic polyneuropathy E11.42 Diabetes mellitus type: type 2 Diabetes mellitus skilled nursing insulin use: without skilled nursing use Francisertoe, bilateral M20.41; M20.42
[2022-01-08 17:42] LABS: Glucose Point of Care 151 mg/dL (70-110)
[2022-01-08] MEDS: insulin lispro 100 unit/1 mL SUBCUT (18:15)
[2022-01-08] MEDS: allopurinol 100 mg Tablet PO (18:16)
[2022-01-08] MEDS: sodium chloride 0.9% 1,000 ML 100 ML IV ×2 (19:38→22:46)
[2022-01-08 20:36] LABS: Glucose Point of Care 140 mg/dL (70-110)
[2022-01-08] MEDS: terazosin 5 mg Capsule 10 MG PO (20:55)
[2022-01-09] VITALS (8 sets, daily range): BP systolic 117–132; BP diastolic 70–85; PULSE 75–83; RESP 16–20; TEMP 36.4–36.8; O2SAT 94–97
[2022-01-09 05:06] LABS: Estmated Average Glucose 128; Hemoglobin A1C 6.1 % (4.0-6.0)
[2022-01-09 05:21] LABS: Alanine Aminotransferase 22 U/L (0-41); Alkaline Phosphatase 102 IU/L (40-130); Anion Gap 13.8 (5-19); Aspartate Amino Transferase 29 U/L (0-40); Blood Urea Nitrogen 25 mg/dL (8-23); Calcium 8.4 mg/dL (8.5-10.5); Carbon Dioxide 23 mmol/L (22-29); Chloride 101 mmol/L (98-107); Chol HDL Ratio 3.21 mg/dL (1.0-5.00); Cholesterol 125 mg/dL (0-200); Globulin 3.2 g/dL (1.3-4.6); Glucose 158 mg/dL (65-115); HDL Cholesterol 39 mg/dL (60-100); LDL Cholesterol Calculated 66 mg/dL (50-129); Osmolality Calculated 286 mOsm/kg (285-295); Potassium 3.8 mmol/L (3.5-5.1); Sodium 134 mmol/L (136-145); Total Bilirubin 1.5 mg/dL (0.15-1.2); Total Protein 6.2 g/dL (6.6-8.7); Triglycerides 99 mg/dL (0-150); VLDL Cholestrol Calculation 20 mg/dL (0-30)
[2022-01-09] MEDS: atenolol 50 mg Tablet 100 MG PO (05:46)
[2022-01-09 06:26] LABS: Glucose Point of Care 154 mg/dL (70-110)
[2022-01-09] MEDS: insulin lispro 100 unit/1 mL SUBCUT ×2 (08:26→17:58)
[2022-01-09] MEDS: pantoprazole 40 mg SDV IVP ×2 (08:27→17:34)
[2022-01-09] MEDS: allopurinol 100 mg Tablet PO ×2 (08:27→17:35)
[2022-01-09] MEDS: apixaban 5 mg Tablet PO ×2 (08:27→17:35)
[2022-01-09] MEDS: sodium chloride 0.9% 1,000 ML 100 ML IV (08:34)
--- NOTE | 2022-01-09 10:41 | PC.SOCIAL ---
IMM Update Pg. 2 of IMM updated and reviewed with patient, who verbalized understanding. Copy provided.
[2022-01-09 10:43] LABS: Glucose Point of Care 141 mg/dL (70-110)
--- NOTE | 2022-01-09 13:43 | PM.PN ---
Subjective Subjective: No acute events overnight. Tolerated CLD yesterday and today without trouble. Denies any N/V. Had mild fillness. Seen sitting and walking in [place] multiple times during the day yesterday. Today morning seen with at bedside. Vitals/I&O/Wt Last Vital Signs Temp 97.8 F 01/09/22 11:28 Pulse 75 01/09/22 11:28 Resp 18 01/09/22 11:28 BP 117/72 01/09/22 11:28 Pulse Ox 94 01/09/22 11:28 01/08/22 01/09/22 01/09/22 22:59 06:59 14:59 Intake Total 1813.333 / 6958.110 3806.966 / 3312.299 1700 / 1700 Output Total 350 / 350 Balance 1813.333 / 3790.458 4016.966 / 2962.299 1700 / 1700 Physical Exam Narrative: male Local tenderness midepigastric region Euvolemic Obese Laying flat Nonfocal neuro exam EOMI, PERRLA Actinic keratosis On room air Saturating well Hemodynamically stable No signs of edema S1, H0Cceoqiqv Data : 01/08/22 04:45 01/09/22 04:30 A&P Assessment and plan (1) Atypical chest pain: Status: Acute (2) Acute pancreatitis: Status: Acute (3) Controlled diabetes mellitus with diabetic polyneuropathy: Status: Acute Qualifiers: Diabetes mellitus type: type 2 Diabetes mellitus half-way insulin use: without termite treater helper use Qualified Code(s): E11.42 - Type 2 diabetes mellitus with diabetic polyneuropathy (4) Hammertoe, bilateral: Status: Acute Plan Acute pancreatitis: Secondary to cholelithiasis. No suspicion of obstruction. No CBD dilatation. Triglyceride level normal. Lipase normal. Alkaline phosphatase normal. Continue with TPN and IV fluids. Clear liquid diet tolerated well. Advance to full liquid diet for lunch. Plan for multiple small meals. Discussed about very gradual slow advancement of diet going further. Protonix, Zofran. Dilaudid 0.5 every 6 hours for pain. Hypertension: Goal blood pressure less than 140/90 mmHg. On multiple antihypertensives include including atenolol 100, amlodipine 5, lisinopril 20, hydrochlorothiazide 12.5 twice daily at home. Blood pressure controlled currently. Continue to hold all antihypertensives other than atenolol to prevent from reflex tachycardia. Atrial fibrillation with rapid ventricular response: Atenolol as above. Continue to monitor. Continue with Eliquis 5 mg twice daily. Type 2 diabetes mellitus. History of CKD. Full code. Full liquid diet. Protonix for PUD prophylaxis. Eliquis will suffice for DVT prophylaxis. Discharge planning: Plan to discharge in next 24 hours if patient continues to tolerate full liquid diet well. Attestations Medical Necessity Statement*: Requires further hospitalization for management of acute pancreatitis while diet is advanced and TPN is weaned off. Time Spent in Patient Care: Greater than 35 minutes Coding Level of Care Code Acute Aircraft Structural Design Engineer for [facility] Diagnoses Atypical chest pain R07.89 Acute pancreatitis K85.90 Controlled diabetes mellitus with diabetic polyneuropathy E11.42 Diabetes mellitus type: type 2 Diabetes mellitus half-way insulin use: without termite treater helper use [place], bilateral M20.41; M20.42
[2022-01-09 17:55] LABS: Glucose Point of Care 168 mg/dL (70-110)
[2022-01-09] MEDS: terazosin 5 mg Capsule 10 MG PO (20:21)
[2022-01-09 20:46] LABS: Glucose Point of Care 130 mg/dL (70-110)
[2022-01-10 03:45] VITALS: BP 137/77; PULSE 78; RESP 19; TEMP 36.8; O2SAT 96
[2022-01-10] MEDS: atenolol 50 mg Tablet 100 MG PO (05:09)
[2022-01-10 05:43] LABS: Basophils # 0.1 10^3/uL (0.0-0.1); Basophils % 0.4 %; Eosinophils # 0.6 10^3/uL (0.0-0.8); Eosinophils % 5.3 %; Hematocrit 41.3 % (42.0-52.0); Hemoglobin 14.2 g/dL (11.7-16.6); Lymphocytes # 2.2 10^3/uL (0.8-4.8); Lymphocytes % 19.1 %; Mean Corpuscular HGB Conc 34.4 g/dL (30.0-36.0); Mean Corpuscular Hemoglobin 31.3 pg (28.0-34.0); Mean Corpuscular Volume 91.2 fl (80-94); Mean Platelet Volume 11.2 fL (7.4-10.4); Monocytes % 8.6 %; Neutrophils # 7.59 10^3/uL (1.8-7.7); Neutrophils % 66.2 %; Nucleated Red Blood Cells % 0 %; Platelet Count 182 10^3/cmm (130-400); Red Blood Count 4.53 10^6/uL (4.1-5.3); White Blood Count 11.5 10^3/uL (4.0-10.0)
[2022-01-10 06:02] LABS: Alanine Aminotransferase 27 U/L (0-41); Albumin Level 3.5 g/dL (3.5-5.2); Alkaline Phosphatase 122 IU/L (40-130); Anion Gap 15.8 (5-19); Aspartate Amino Transferase 35 U/L (0-40); Blood Urea Nitrogen 23 mg/dL (8-23); Calcium 9.2 mg/dL (8.5-10.5); Carbon Dioxide 23 mmol/L (22-29); Chloride 97 mmol/L (98-107); Creatinine Clr Calc Pharmacy 65.1434; Globulin 3.2 g/dL (1.3-4.6); Glucose 152 mg/dL (65-115); Osmolality Calculated 281 mOsm/kg (285-295); Potassium 3.8 mmol/L (3.5-5.1); Sodium 132 mmol/L (136-145); Total Protein 6.7 g/dL (6.6-8.7)
[2022-01-10 06:08] LABS: Glucose Point of Care 173 mg/dL (70-110)
[2022-01-10 07:22] VITALS: BP 145/78; PULSE 75; RESP 18; O2SAT 96
[2022-01-10 07:57] VITALS: PULSE 79; RESP 16; O2SAT 95
[2022-01-10] MEDS: allopurinol 100 mg Tablet PO (08:45)
[2022-01-10] MEDS: apixaban 5 mg Tablet PO (08:45)
[2022-01-10] MEDS: pantoprazole 40 mg SDV IVP (08:45)
[2022-01-10] MEDS: insulin lispro 100 unit/1 mL SUBCUT ×2 (10:10→13:17)
--- NOTE | 2022-01-10 10:18 | PM.DCS ---
Discharge Providers Date of Admission: 01/04/22 13:53 Date of Discharge: January 10, 2022 Attending Provider at Admission: Kamala Benz MD Attending Provider at Discharge: Carlton Foreman MD Primary Care Provider: Lissette Lucio Diagnoses at Discharge Discharge Diagnosis (1) Atypical chest pain: Status: Acute (2) Acute pancreatitis: Status: Acute (3) Controlled diabetes mellitus with diabetic polyneuropathy: Status: Acute Qualifiers: Diabetes mellitus termite control representative insulin use: without termite control representative use Diabetes mellitus type: type 2 Qualified Code(s): E11.42 - Type 2 diabetes mellitus with diabetic polyneuropathy (4) Hammertoe, bilateral: Status: Acute Reason for Visit Reason for Visit: Chest Pain Brief History: History as per HPI: Ariel Lugo is a 71 year old male who presented to the hospital with chief complaint of worsening midepigastric pain.? Patient is stating that he woke up around 4 AM with midepigastric pain which was radiating towards his chest.? He is describing his pain as sharp pain which gets worse on any kind of movement.? He has not experienced any emesis however experiencing nausea.? He would not describe his pain as pressure-like sensation, about 7 months ago he had cardiac work-up stress test was negative.? This time he has not experienced any diarrhea, fever change in antibiotics or his diet.? No previous pancreatitis episodes.? He has history of actinic keratosis.? Did present to the ER for worsening of pain. Hospital Course Hospital Course He was admitted to the hospital for further evaluation and management of chest pain. He was found to have pancreatitis on CT imaging. CT scan also showed multiple gallstones but without any CBD dilatation. Cholecystitis was ruled out clinically and through abdominal ultrasound. Patient's diet was advanced very gradually. His hospital stay was prolonged due to multiple failure of advancement of diet and recurrent abdominal pain along with nausea. Eventually he was graduated very slowly in diet along with multiple small meals. Currently patient has been doing well with clear liquid diet for last 36 hours and full liquid diet for last 12 hours. His antihypertensives have been adjusted. He is been discharged hemodynamically stable condition with advised to take full liquid diet for now 4 to 5 days with multiple small meals and advance gradually to GI soft/brat diet and eventually to regular diet within the next 10 days to 2 weeks. He is advised to take amlodipine and atenolol for blood pressure while holding off on lisinopril and hydrochlorothiazide. He is advised to maintain blood pressure diary checking blood pressure twice daily and follow-up with his primary care provider within next 1 week for further adjustment of antihypertensives. For diabetes he is advised to hold off on glipizide for now and continue taking insulin as before. His advised to check fasting blood sugars daily at home and maintain diary to follow-up with a primary care provider for further adjustment of antidiabetic medications. Physical Exam Narrative: male Local tenderness midepigastric region Euvolemic Obese Laying flat Nonfocal neuro exam EOMI, PERRLA Actinic keratosis On room air Saturating well Hemodynamically stable No signs of edema S1, [id number] Discharge Data Studies Completed and Pending Completed Studies During Hospitalization Category Date Time Status CT abdomen pelvis w con* [id number] Stat Cat Scan 01/07/22 09:43 Completed CTA chest abdomen pelvis [CT angio chest abdomen pelvis Cat Scan 01/04/22 06:29 Completed ] Stat XR chest 1V portable [id number] Stat Exams 01/04/22 05:39 Completed US abdomen limited [id number] Urgent Ultrasound 01/04/22 09:00 Completed Radiology Impressions Chest X-Ray 01/04/22 05:39 IMPRESSION: No acute cardiopulmonary abnormality. Chest/Abdomen/Pelvis CTA 01/04/22 06:29 IMPRESSION: No acute findings in the chest. IMPRESSION: Acute interstitial pancreatitis. No drainable fluid collections are seen. Abdomen Ultrasound 01/04/22 09:00 IMPRESSION: Cholelithiasis without evidence of cholecystitis. Abdomen/Pelvis CT 01/07/22 09:43 IMPRESSION: 1. Acute pancreatitis. 2. Mucosal thickening of the distal stomach and duodenum are likely reactive in nature. 3. Small bilateral pleural effusions with adjacent compressive atelectasis. 4. Cholelithiasis. Laboratory Results WBC 11.5 10^3/uL (4.0-10.0) H 01/10/22 04:58 RBC 4.53 10^6/uL (4.1-5.3) 01/10/22 04:58 Hgb 14.2 g/dL (11.7-16.6) 01/10/22 04:58 Hct 41.3 % (42.0-52.0) L 01/10/22 04:58 MCV 91.2 fl (80-94) 01/10/22 04:58 MCH 31.3 pg (28.0-34.0) 01/10/22 04:58 MCHC 34.4 g/dL (30.0-36.0) 01/10/22 04:58 RDW 14.0 % (12.1-15.1) 01/10/22 04:58 Plt Count 182 10^3/cmm (130-400) 01/10/22 04:58 MPV 11.2 fL (7.4-10.4) H 01/10/22 04:58 Neut % (Auto) 66.2 % 01/10/22 04:58 Lymph % (Auto) 19.1 % 01/10/22 04:58 [place] % (Auto) 8.6 % 01/10/22 04:58 Eos % (Auto) 5.3 % 01/10/22 04:58 Baso % (Auto) 0.4 % 01/10/22 04:58 Neut # (Auto) 7.59 10^3/uL (1.8-7.7) 01/10/22 04:58 Lymph # (Auto) 2.2 10^3/uL (0.8-4.8) 01/10/22 04:58 [place] # (Auto) 1.0 10^3/uL (0.2-0.9) H 01/10/22 04:58 Eos # (Auto) 0.6 10^3/uL (0.0-0.8) 01/10/22 04:58 Baso # (Auto) 0.1 10^3/uL (0.0-0.1) 01/10/22 04:58 Nucleated RBC % (auto) 0 % 01/10/22 04:58 Nucleated RBCs # 0.0 /100WBC 01/10/22 04:58 Sodium 132 mmol/L (136-145) L 01/10/22 04:58 Potassium 3.8 mmol/L (3.5-5.1) 01/10/22 04:58 Chloride 97 mmol/L (98-107) L 01/10/22 04:58 Carbon Dioxide 23 mmol/L (22-29) 01/10/22 04:58 Anion Gap 15.8 (5-19) 01/10/22 04:58 BUN 23 mg/dL (8-23) 01/10/22 04:58 Creatinine 1.2 mg/dL (0.7-1.2) 01/10/22 04:58 GFR Calculation Not Reportable 01/10/22 04:58 Glucose 152 mg/dL (65-115) H 01/10/22 04:58 POC Glucose 173 mg/dL (70-110) H 01/10/22 05:56 Estimat Average Glucose 128 01/09/22 04:30 Hemoglobin A1c 6.1 % (4.0-6.0) H 01/09/22 04:30 Calculated Osmolality 281 mOsm/kg (285-295) L 01/10/22 04:58 Calcium 9.2 mg/dL (8.5-10.5) 01/10/22 04:58 Phosphorus 2.4 mg/dL (2.5-4.5) L 01/08/22 04:45 Magnesium 2.2 mg/dL (1.7-2.3) 01/08/22 04:45 Iron 38 ug/dL (59-158) L 01/08/22 04:45 TIBC 199 mcg/dl 01/08/22 04:45 % Saturation 19.0 % (20-50) L 01/08/22 04:45 Unsat Iron Binding 161 ug/dL (112-347) 01/08/22 04:45 Total Bilirubin 1.0 mg/dL (0.15-1.2) 01/10/22 04:58 AST 35 U/L (0-40) 01/10/22 04:58 ALT 27 U/L (0-41) 01/10/22 04:58 Alkaline Phosphatase 122 IU/L (40-130) 01/10/22 04:58 Troponin T Baseline 21 ng/L (0-15) H 01/04/22 06:11 Troponin T 120 Minute 21.68 ng/L (0-15) H 01/04/22 07:47 Delta Troponin T 0.68 ABS# (0-10) 01/04/22 07:47 Troponin T Hi Sens 6Hr 16.93 ng/L (0-15) H 01/04/22 11:45 Troponin T Hi Sens 6Hr Delta -4.07 ng/L (0-12) L 01/04/22 11:45 C-Reactive Protein 79.1 mg/L (0.0-4.9) H 01/08/22 04:45 NT-Pro-B Natriuret Pep 373 pg/mL (0-125) H 01/04/22 06:11 Total Protein 6.7 g/dL (6.6-8.7) 01/10/22 04:58 Albumin 3.5 g/dL (3.5-5.2) 01/10/22 04:58 Globulin 3.2 g/dL (1.3-4.6) 01/10/22 04:58 Triglycerides 99 mg/dL (0-150) 01/09/22 04:30 Cholesterol 125 mg/dL (0-200) 01/09/22 04:30 LDL Cholesterol, Calc 66 mg/dL (50-129) 01/09/22 04:30 Total VLDL Cholesterol 20 mg/dL (0-30) 01/09/22 04:30 HDL Cholesterol 39 mg/dL (60-100) L 01/09/22 04:30 Cholesterol/HDL Ratio 3.21 mg/dL (1.0-5.00) 01/09/22 04:30 Lipase 92 U/L (13-60) H 01/08/22 04:45 Procalcitonin 0.07 ng/mL (0-0.5) 01/04/22 06:11 TSH 1.56 uIU/mL (0.27-4.20) 01/08/22 04:45 Vitals Last Vital Signs Temp 98.3 F 01/10/22 03:45 Pulse 79 01/10/22 07:57 Resp 16 01/10/22 07:57 BP 145/78 01/10/22 07:22 Pulse Ox 95 01/10/22 07:57 Discharge Plan Discharge Patient Disposition: Home Condition: Stable Prescriptions: Continued famotidine 40 mg tablet 40 mg PO DAILY 0RF atenolol 100 mg tablet 100 mg PO QAM 0RF potassium chloride 10 mEq capsule, extended release 20 meq PO DAILY 0RF Humulin N NPH Insulin KwikPen 100 unit/mL (3 mL) insulin pen See Rx Instructions SUBCUT BID 0RF Rx Instructions: 55 units EVERY AM AND 20 units EVERY PM allopurinol 100 mg tablet 100 mg PO BID 0RF (DME) Diabetic shoes with 3 sets insoles See Rx Instructions .ROUTE .MEDSUPPLY Qty: 1 0RF Rx Instructions: As directed by HOME amlodipine 5 mg tablet 5 mg PO DAILY 0RF Eliquis 5 mg tablet 5 mg PO BID 0RF multivitamin Tablet 1 tab PO DAILY 0RF Vitamin C 500 mg Tablet 500 mg PO DAILY 0RF terazosin 10 mg capsule 10 mg PO BEDTIME 0RF Vitamin B-12 1 tab PO DAILY 0RF Vitamin D3 1 cap PO DAILY 0RF Held lisinopril-hydrochlorothiazide 20-12.5 mg tablet 1 tab PO BID 0RF Hold Instructions: Resume on 01/17/22. glipizide 10 mg tablet 10 mg PO QAM 0RF Hold Instructions: Resume on 01/17/22. atorvastatin 80 mg tablet 80 mg PO BEDTIME 0RF Hold Instructions: Resume on 01/24/22. Discharge Orders: Discharge Order (Routine); Ordered 01/10/22 Ordered By: Carlton Foreman Referrals: Lissette Lucio PA [Primary Care Provider] - 01/16/22 11:30 am Discharge Diet: Advance as tolerated and Full LIquid Discharge Activity: Resume usual activity and Increase activity as tolerated Patient Instructions: Full Liquid Diet, Chest Pain (DC), Pancreatitis (ED), Opioid Safety Activity Restrictions/Additional Instructions: Please continue taking full liquid diet for next 1 week and advance very gradually to GI soft/brat diet which includes applesauce, mashed potatoes, toast, bananas and then gradually advance to your regular diet within the next 10 days to 2 weeks. For now take multiple small meals. For now do not take lisinopril and hydrochlorothiazide for blood pressures as her blood pressures have been stable without it. Please check your blood pressures daily and maintain a blood pressure diary and follow-up with your primary care provider within next 1 week for further adjustment of antihypertensives if needed. You will continue take your atenolol and amlodipine for now. Do not take glipizide for now. Your blood sugars have been stable off antidiabetic medications given your low oral intake. Check your blood sugars daily in the morning. If your fasting blood sugar levels are more than 140 you can take glipizide 5 mg. Maintain a blood sugar diary and follow-up with your primary care provider within next 1 week. Discharge Attestations Time Spent in Discharge Care*: greater than 30 min Specific Discharge Activities: educating patient, discussing with pcp/other providers, discussing with telephonic nurse case manager/social workers/dc planners, documenting/other paperwork and evaluating patient/reviewing data Status at Discharge: Cognitive status at discharge: cognitively intact, Behavioral status at discharge: cooperative, Functional status at discharge: independent ambulation, Overall status at discharge: patient is progressing back to baseline Quality Metrics Clinical Quality Measures [ No reported AMI, CVA or VTE this stay] Coding Level of Care Code Acute Chg FW DC note Diagnoses Atypical chest pain R07.89 Acute pancreatitis K85.90 Controlled diabetes mellitus with diabetic polyneuropathy E11.42 Diabetes mellitus termite control representative insulin use: without long-term use Diabetes mellitus type: type 2 Hammertoe, bilateral M20.41; M20.42
--- NOTE | 2022-01-10 10:26 | PC.CHAP ---
Pastoral Care Encounter/Spiritual Assessment Type of Contact [] Declined civil defense director visit [] Patient/Family/Request visit [] Outpatient visit [] Follow-up visit [] Physician referral [] Code/Alert [x] Routine visit [] Staff referral [] Actively dying [] Patient sleeping [] Family support [] [] Out of room [] Palliative care [] [] Receiving care in room [] Pre-surgical visit [] Trauma [] Long length of stay [] ICU visit [] Other: Relational/Emotional Strength []x Patient feels connected with others/family/visitors/staff [] Distress [] Loneliness/isolation [] Abandonment Spirituality of Patient [x] Person of Yessy [] Attends Cheondoism of their Yessy [x] Believes in Prayer [] Reads Bible or Methodist materials [] There are Spiritual issues to be addressed Senior Hr Manager Interventions [x] Prayer [x] Active listening [] Non-anxious presence [x] Spiritual/emotional support [] Crisis/trauma care [] Spiritual counseling [] Bereavement support [] Provided bereavement packet [] Provided Bible/devotional materials [] Provided toy/stuffed animal, coloring book to patient or family member [] Provided Communion [] Anointing/Leon [] Salvation [x] Completed spiritual assessment [] Other: Impact on Illness or Injury [] Angry [] Fearful [] Anxious [] Often cries [] Exhaustion [] Unable to work [] Unable to attend orthodox [] Unable to walk/stand [] Unable to read [] Unable to drive [] Unable to eat/drink [] Unable to sleep [] Unable to be with family [] Patient intubated [] Other: Summary Time spent with patient 10 min
[2022-01-10 10:51] LABS: Glucose Point of Care 169 mg/dL (70-110)
[2022-01-10 11:33] VITALS: BP 114/73; PULSE 81; RESP 18; O2SAT 97
--- NOTE | 2022-01-10 15:17 | PC.NURSE ---
Rounded on patient and he was getting ready to be discharged.
[2022-01-10 15:22] VITALS: BP 114/73; PULSE 81; RESP 18; O2SAT 97
== END 2022-01-10 15:14 | disposition home or self-care (01) | DRG 440 ==
LOC: ER 13:02 → MEDSURG 15:50
PROVIDERS: Emergency Medicine; Family Medicine; Admitting Provider Internal Medicine; Emergency Provider Emergency Medicine; PCP Physician Assistant; Visit Provider Student in an Organized Health Care Education/Training Program
DX: K85.90 Acute pancreatitis without necrosis or infection, unspecified (principal); K80.20 Calculus of gallbladder without cholecystitis without obstruction; E11.42 Type 2 diabetes mellitus with diabetic polyneuropathy; M20.42 Other hammer toe(s) (acquired), left foot; M20.41 Other hammer toe(s) (acquired), right foot; R11.0 Nausea; I48.91 Unspecified atrial fibrillation; E78.5 Hyperlipidemia, unspecified; E87.6 Hypokalemia; I12.9 Hypertensive chronic kidney disease with stage 1 through stage 4 chronic kidney disease, or unspecified chronic kidney disease; E11.22 Type 2 diabetes mellitus with diabetic chronic kidney disease; N18.9 Chronic kidney disease, unspecified; R07.89 Other chest pain; L57.0 Actinic keratosis; Z87.891 Personal history of nicotine dependence; Z79.4 Long term (current) use of insulin; Z79.01 Long term (current) use of anticoagulants
CPT/HCPCS: 36415; 36416; 71045; 71275; 74174; 74177; 76705; 80053; 80061; 82962; 83036; 83540; 83550; 83690; 83735; 83880; 84100; 84145; 84443; 84478; 84484; 85025; 86140; 93005; 96361; 96372; 96374; 96375; 99285; C9113; J1170; J1815; J2405; J3010; J3475; J3480; J7030; Q9967

== ENCOUNTER → 2022-01-29 13:29 | Outpatient (BNVA) | payer MEDICARE, SELFPAY | PROVIDERS: PCP Physician Assistant; Visit Provider Surgery | DX: K80.20 Calculus of gallbladder without cholecystitis without obstruction (principal) | CPT/HCPCS: 99203 ==

== ENCOUNTER 2022-02-06 06:08 | Day surgery (SDC) | payer MEDICARE, SELFPAY ==
[2022-02-05 14:57] VITALS: BMI 31.9
[2022-02-06] VITALS (22 sets, daily range): BP systolic 71–121; BP diastolic 50–78; PULSE 40–60; RESP 10–26; TEMP 36.1–36.5; O2SAT 91–99
[2022-02-06] MEDS: sodium chloride 0.9% 1,000 ML 30 ML IV (06:39)
[2022-02-06 06:40] LABS: Glucose Point of Care 74 mg/dL (70-110)
[2022-02-06] MEDS: acetaminophen 1,000 MG/100 ML PIGGYBACK 400 MG IV (06:40)
--- NOTE | 2022-02-06 06:55 | W.PM.OPSUD ---
Surgery/Procedure H&P Update DATE OF PROCEDURE: February 06, 2022 DATE H&P PERFORMED: 01/29/22 H&P UPDATE INFORMATION: I have reviewed H&P completed within last 30 days, I have examined patient prior to procedure and No changes to prior documentation PREOP DIAGNOSIS: Symptomatic cholelithiasis/biliary pancreatitis PRIMARY INDICATION FOR PROCEDURE: The same PLANNED PROCEDURE: Operation Date: 02/06/22 08:00 Proposed Procedures p Laparoscopic Cholecystectomy 09386/[id number](Not Applicable) - Arie Rubi MD
--- NOTE | 2022-02-06 07:50 | ANES.PREANE2 ---
Pre-Anesthetic Assessment Height/Weight: Height 1.73 m Weight 95.254 kg Temp Pulse Resp BP Pulse Ox 97.0 F L 52 L 18 112/73 97 02/06/22 06:33 02/06/22 06:33 02/06/22 06:33 02/06/22 06:33 02/06/22 06:33 Preop Diagnosis: Symptomatic cholelithiasis/biliary pancreatitis Operation Date: 02/06/22 08:00 Proposed Procedures p Laparoscopic Cholecystectomy [id number](Not Applicable) - Arie Rubi MD Familial anesthetic complications: None Was Beta Sampson taken within 24 hours: Yes Was Clonidine taken within 24 hours: N/A Last intake: Intake Last Liquid Date 02/05/22 Last Liquid Time 19:00 Last Solid Date 12/28/21 Last Solid Time 20:00 Social No alcohol and No tobacco Exam alert, oriented x 3, clear to auscultation bilaterally and regular rate & rhythm Airway Submandibular: within normal limits Cervical ROM: within normal limits Mallampati: Class II Dentition: partials Pulmonary Chronic Obstructive Pulmonary Disease CV/HEM Atrial Fibrillation and Hypertension Metabolic Diabetes Mellitus, Hyperlipidemia and Morbid Obesity Neuropsych Neuropathy Anesthetic Plan ASA status: 3 Anesthesia: General Medications/Allergies Home Medications Medication Instructions Recorded Confirmed Last Taken Type allopurinol 100 mg tablet 100 mg PO BID 01/24/21 02/06/22 02/05/22 History atorvastatin 80 mg tablet 80 mg PO BEDTIME 01/24/21 02/06/22 02/05/22 History famotidine 40 mg tablet 40 mg PO DAILY 02/27/21 02/06/22 02/05/22 History atenolol 100 mg tablet 100 mg PO QAM tab 02/28/21 02/06/22 02/06/22 History Diabetic shoes with 3 sets insoles #1 ea 07/25/21 02/06/22 Unknown Rx insulin NPH isoph U-100 human 100 See Rx Instructions SUBCUT BID 11/29/21 02/06/22 02/05/22 History unit/mL (3 mL) subcutaneous pen (Humulin N NPH U-100 Insulin KwikPen) potassium chloride 10 mEq 20 meq PO DAILY cap 11/29/21 02/06/22 02/05/22 History capsule,extended release Vitamin B-12 1 tab PO DAILY 01/04/22 02/06/22 02/05/22 History Vitamin D3 1 cap PO DAILY 01/04/22 02/06/22 02/05/22 History amlodipine 5 mg tablet 5 mg PO DAILY 01/04/22 02/06/22 02/06/22 History apixaban 5 mg tablet (Eliquis) 5 mg PO BID 01/04/22 02/06/22 02/03/22 21:00 History ascorbic acid (vitamin C) 500 mg 500 mg PO DAILY 01/04/22 02/06/22 02/05/22 History tablet (Vitamin C) multivitamin 1 tab PO DAILY 01/04/22 02/06/22 02/05/22 History terazosin 10 mg capsule 10 mg PO BEDTIME 01/04/22 02/06/22 02/05/22 History lisinopril 5 mg tablet 5 mg PO DAILY 02/05/22 02/06/22 02/05/22 History Allergies Allergy/AdvReac Type Severity Reaction Status Date / Time No Known Allergies Allergy Verified 02/06/22 06:28 Current Medications Generic Name Dose Route Start Last Admin Trade Name Freq PRN Reason Stop Dose Admin Sodium Chloride 1,000 mls @ 30 mls/hr 02/06/22 06:30 02/06/22 06:39 Sodium Chloride 0.9% IV 02/07/22 06:29 30 mls/hr .Q24H MLAIA Administration PFSH Anesthesia Medical History Acute pancreatitis Atrial fibrillation Controlled diabetes mellitus with diabetic polyneuropathy Enlarged heart Hammertoe, bilateral HTN (hypertension) Hyperlipidemia Family History Father Aortic valve replaced CHF (congestive heart failure) Diabetes Family/Other Diabetes Other Atrial fibrillation Denies family history of Stroke Social History Smoking and tobacco status: former smoker Quit status (tobacco): has quit using tobacco Year quit tobacco: 30 years ago Second hand smoke exposure: No Smoking risk assessment/counseling performed?: Yes Alcohol intake: current Alcohol intake frequency: holidays/special occasions only Alcohol type: beer Desire information about alcohol rehabilitation?: No Counseling given: Yes Desire information about substance/drug rehabilitation?: No Counseling given: Yes Adopted: No Caregiver/support person: No Lives independently: Yes Household members: spouse, family and children Housing: House Marital status: Number of children: 3 Number of grandchildren: 10 Highest education level completed: Some College, No Degree service: No Current occupational status: retired Current occupational exposures/hazards: No Pets and animals: Yes Pets & animals: dog(s) and bird(s) History of recent travel: No Leisure activites: exercise and fishing Sexually active: Yes Current gender identity: Male Yessy/Congregation: Yazidism Special yessy needs: No Agree to transfusion: Yes Financial difficulty paying for basics: Not Very Hard Data Anesthesia Cardiac Studies: Echocardiogram 04/20/21 Sestamibi Stress Test (Cardiology) 04/20/21
[2022-02-06] MEDS: ampicillin-sulbactam 3 GM in sodium chloride 0.9% (plus) 50 ML IV (07:52)
[2022-02-06] MEDS: lidocaine 2% INJ 20 mL INJECTION (08:26)
--- NOTE | 2022-02-06 09:46 | PM.OP ---
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 Time-out was done verifying the patient's name/date of /planned procedure and destination after the procedure, all were in agreement. SCDs confirmed to be functioning, preoperative antibiotics administered per protocol, and beta kalyn protocol was confirmed. Patient was appropriately secured to the table, footboard was applied to the OR table, before prep and drape anesthesia was asked to tilt the table back and forth to make sure that the patient is appropriately secured and she was. Prep and drape of the abdomen was done under the usual sterile technique, followed by that supraumbilical skin incision,skin incision was done by a 15 blade knife, and stay sutures were applied to the fascia and Byrne trocar technique was used to enter the abdominal without injuring any abdominal viscera, started by low flow gas insufflation followed by a high flow, started with a 10 mm laparoscope and under direct vision there was no evidence of any injuries, the scope then switched to a 30? ,10 millimeter scope and under direct visualization 5 millimeter trocar was inserted in the epigastric region followed by two 5 mm trocars were inserted in the right upper quadrant that was done after injection of local lidocaine 2% at all incision sites. Gallbladder showed chronic calculus cholecystitis and liver cirrhosis with macro nodules.Omental adhesions noticed to increase the gallbladder. Patient was then positioned in the head up and tilted to the left. Ratcheted forceps were introduced into the lateral most 5mm port and was applied unto the fundus of the gallbladder cephalad and using Bullet forceps the infundibulum of the gallbladder was retracted laterally. Using [place] forceps to take down omental adhesions, then L-hook cautery to dissect the peritoneum overlying the Calot's triangle which was then opened medially and laterally until the cystic duct and the cystic artery were skeletonized. Dissection was carried along the body of the gallbladder and after ensuring critical view of safety was identfied. Cystic duct and cystic artery where seen connected to the gallbladder. Clips were applied on the cystic duct towards the common bile duct 1 towards the gallbladder then divided is in sharp scissors, 2 clips were then applied onto the cystic artery and 1 towards the gallbladder and divided by sharp scissors. Additional traversing vessels were clipped and divided. Please note that the cystic duct stump was bigger than the regular clips and I had to apply Endoloop PDS and Endoloop Vicryl to secure the stump. Dissection was then carried along of the gallbladder from the gallbladder fossa using cautery as well as sharp dissection with heat energy. The gallbladder then was dissected out from the gallbladder fossa totally , cholecystectomy was then achieved and was placed in an Endo Catch bag and then retrieved from the Byrne trocar site under direct visualization using a 5 mm 30? scope through the epigastric trocar, specimen was then passed to the circulating nurse to go for permanent pathology,irrigation and hemostasis was done to the gallbladder fossa after hemostasis was secured, final survey laparoscopy was done that showed no injuries. Suction irrigation was obtained,A piece of the liver edge was taken out using sharp scissor. Hemostasis was secured. The supraumbilical fascial defect was then closed using interrupted number one PDS sutures using a fascial closure device ;Jose De Jesus Ascencio under direct visualization following that Gas was allowed to deflate,Trocars were then taken out under direct vision there was no evidence of bleeding. Specimens were passed to the circulating nurse for permanent pathology. No drains were placed and the supraumbilical incision as well as all trocar sites were closed by 3/0 Vicryl followed by Surgical skin shefali to approximate the skin edges of the incisions , dressing was applied in the form of Band aids and the patient patient got extubated and was taken to recovery area in a stable condition. Count of sponges,needles and instruments were completed at the end of the procedure I was present for the whole entire procedure.
--- NOTE | 2022-02-06 10:01 | SUR.PHASEI ---
0951 PT TO PACU 5 PT SLEEPS WITH GOOD RESP EFFORT, IV TO RT HAND #20 WITH NS 500ML UP AT KVO RATE PER GRAVITY ABDOMEN SOFT WITH 4 SITES WITH BANDAIDS D/I BILAT SCDS ON .
--- NOTE | 2022-02-06 10:05 | SUR.PHASEI ---
PT MONITOR AFIB WITH RATE 45-54 NO ECTOPY NOTED, PT AWAKES TO VOICE BUT QUICKLY BACK TO SLEEP VSS , PT WITH GOOD RESPIRATORY EFFORT NOTED.
[2022-02-06] MEDS: sodium chloride 0.9% 500 ML 999 ML IV (11:00)
--- NOTE | 2022-02-06 11:05 | PC.NURSE ---
Low BP 71/[address] Olivares ordered 500ml NS bolus. HR dipping into upper 30s at times. Remains in the upper 40s and low 50s on telemetry. Patient is A&Ox3, no other symptoms. Pain minimal to umbilicus. Dr Rubi at bedside assessing patient. at bedside. Will continue to monitor.
[2022-02-06 11:35] LABS: Glucose Point of Care 96 mg/dL (70-110)
--- NOTE | 2022-02-06 11:37 | ECG_ITS ---
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 Measurements Intervals [place] Rate: 45 P: MT: QRS: 6 QRSD: 103 T: 2 QT: 511 QTc: 445 Interpretive Statements ATRIAL FIBRILLATION WITH SLOW VENTRICULAR RESPONSE PROLONGED QT INTERVAL Compared to ECG 01/06/2022 18:08:16 Prolonged QT interval now present T-wave abnormality no longer present Electronically Signed On 02-06-2022 19:01:16 CDT by Henry Puente M.D. [email or web address]
[2022-02-06] MEDS: albumin 12.5 GM/250 ML VIAL IV (11:44)
--- NOTE | 2022-02-06 11:48 | PC.NURSE ---
Bolus complete, Dr Olivares rounded again and ordered Albumin. Lungs clear per auscultation, HR remains irregular Afib on monitor. 4 L NC maintaining 94%. Legs elevated and HOB @ 45 degrees. H&H sent to lab per Dr Rubi, RT notified of EKG order. at bedside. Incisions clean and no bleeding. Abd soft and tender around incisions. No bruising noted at this time.
[2022-02-06 12:25] LABS: Hematocrit 37.7 % (42.0-52.0); Hemoglobin 12.8 g/dL (11.7-16.6)
[2022-02-06] MEDS: oxyCODONE 5 mg IR Tab/Cap PO (12:32)
--- NOTE | 2022-02-06 12:44 | PC.NURSE ---
H&H stable and reported to Dr Rubi. Dr Olivares stated patient BP better and can D/C. PO pain med given prior to leaving. Left with all personal belongings.
--- NOTE | 2022-02-06 13:20 | ANE.PACU2 ---
Inpatient post-anesthesia follow up: Airway intact: Yes Vital signs: Temperature 97.0 F Pulse Rate 57 Respiratory Rate 18 Blood Pressure 99/63 Pulse Oximetry 91 Oxygen Delivery Me thod Room Air Oxygen Flow Rate 4 Fraction of Inspir ed Oxygen Hydration adequate: Yes Nausea and vomiting: No Pain level: 2 Mental status: Baseline
== END 2022-02-06 12:48 | disposition home or self-care (01) ==
PROVIDERS: PCP Physician Assistant; Visit Provider Surgery
PROC: 0FT44ZZ Resection of Gallbladder, Percutaneous Endoscopic Approach (ICD-10-PCS; CPT 47562; principal; 2022-02-06 08:00)
DX: K80.10 Calculus of gallbladder with chronic cholecystitis without obstruction (principal); K75.81 Nonalcoholic steatohepatitis (NASH); J44.9 Chronic obstructive pulmonary disease, unspecified; I48.91 Unspecified atrial fibrillation; I10 Essential (primary) hypertension; E11.9 Type 2 diabetes mellitus without complications; E78.5 Hyperlipidemia, unspecified; E66.01 Morbid (severe) obesity due to excess calories; Z68.31 Body mass index [BMI] 31.0-31.9, adult; Z79.4 Long term (current) use of insulin; Z82.49 Family history of ischemic heart disease and other diseases of the circulatory system; Z83.3 Family history of diabetes mellitus; Z87.891 Personal history of nicotine dependence
CPT/HCPCS: 47379; 47562; 36416; 82962; 85014; 85018; 88304; 88307; 93005; J0295; J1200; J1644; J2405; J2704; J2710; J3010; J3490; J7030; J7040; P9041

== ENCOUNTER → 2022-02-14 10:46 | Outpatient (BNVA) | payer MEDICARE, SELFPAY | PROVIDERS: PCP Physician Assistant; Visit Provider Surgery | DX: Z09 Encounter for follow-up examination after completed treatment for conditions other than malignant neoplasm (principal); K74.60 Unspecified cirrhosis of liver ==

== ENCOUNTER → 2022-08-09 15:04 | Outpatient (BNVA) | payer MEDICARE, SELFPAY | PROVIDERS: PCP Physician Assistant; Visit Provider Podiatrist Foot & Ankle Surgery | DX: E11.42 Type 2 diabetes mellitus with diabetic polyneuropathy (principal); L60.3 Nail dystrophy; M21.41 Flat foot [pes planus] (acquired), right foot; M21.42 Flat foot [pes planus] (acquired), left foot; Z79.4 Long term (current) use of insulin | CPT/HCPCS: 11721 ==

== ENCOUNTER → 2022-10-18 13:27 | Outpatient (BNVA) | payer MEDICARE, SELFPAY | PROVIDERS: PCP Physician Assistant; Visit Provider Podiatrist Foot & Ankle Surgery | DX: E11.8 Type 2 diabetes mellitus with unspecified complications (principal); L60.3 Nail dystrophy; E11.42 Type 2 diabetes mellitus with diabetic polyneuropathy; M21.41 Flat foot [pes planus] (acquired), right foot; M21.42 Flat foot [pes planus] (acquired), left foot; Z79.4 Long term (current) use of insulin | CPT/HCPCS: 11721 ==

== ENCOUNTER → 2022-12-27 07:59 | Outpatient (BNVA) | payer MEDICARE, SELFPAY | PROVIDERS: PCP Physician Assistant; Visit Provider Podiatrist Foot & Ankle Surgery | DX: E11.8 Type 2 diabetes mellitus with unspecified complications (principal); E11.42 Type 2 diabetes mellitus with diabetic polyneuropathy; L60.3 Nail dystrophy; M21.41 Flat foot [pes planus] (acquired), right foot; M21.42 Flat foot [pes planus] (acquired), left foot; Z79.4 Long term (current) use of insulin | CPT/HCPCS: 99212 ==

== ENCOUNTER → 2023-02-11 12:01 | Outpatient (BNVA) | payer MEDICARE, SELFPAY | PROVIDERS: PCP Physician Assistant; Visit Provider Internal Medicine Cardiovascular Disease | DX: E78.5 Hyperlipidemia, unspecified (principal); I10 Essential (primary) hypertension; E11.42 Type 2 diabetes mellitus with diabetic polyneuropathy; Z79.01 Long term (current) use of anticoagulants; I48.91 Unspecified atrial fibrillation; Z87.891 Personal history of nicotine dependence; Z79.4 Long term (current) use of insulin | CPT/HCPCS: 99213 ==

== ENCOUNTER → 2023-03-21 08:02 | Outpatient (BNVA) | payer MEDICARE, SELFPAY | PROVIDERS: PCP Physician Assistant; Visit Provider Podiatrist Foot & Ankle Surgery | DX: E11.8 Type 2 diabetes mellitus with unspecified complications (principal); L60.3 Nail dystrophy; E11.42 Type 2 diabetes mellitus with diabetic polyneuropathy; M21.41 Flat foot [pes planus] (acquired), right foot; M21.42 Flat foot [pes planus] (acquired), left foot; Z79.4 Long term (current) use of insulin | CPT/HCPCS: 11721 ==

== ENCOUNTER → 2023-06-20 08:21 | Outpatient (BNVA) | payer MEDICARE, SELFPAY | PROVIDERS: PCP Physician Assistant; Visit Provider Podiatrist Foot & Ankle Surgery | DX: E11.42 Type 2 diabetes mellitus with diabetic polyneuropathy (principal); L60.3 Nail dystrophy; M21.41 Flat foot [pes planus] (acquired), right foot; M21.42 Flat foot [pes planus] (acquired), left foot; Z79.4 Long term (current) use of insulin | CPT/HCPCS: 11721 ==

== ENCOUNTER → 2023-07-29 11:44 | Outpatient (BNVA) | payer MEDICARE, SELFPAY | PROVIDERS: PCP Physician Assistant; Visit Provider Internal Medicine Cardiovascular Disease | DX: I48.91 Unspecified atrial fibrillation (principal); Z79.01 Long term (current) use of anticoagulants; E78.5 Hyperlipidemia, unspecified; I10 Essential (primary) hypertension; R07.9 Chest pain, unspecified; E11.42 Type 2 diabetes mellitus with diabetic polyneuropathy; Z79.4 Long term (current) use of insulin; Z87.891 Personal history of nicotine dependence | CPT/HCPCS: 99213 ==

== ENCOUNTER → 2023-08-22 08:15 | Outpatient (BNVA) | payer MEDICARE, SELFPAY | PROVIDERS: PCP Physician Assistant; Visit Provider Podiatrist Foot & Ankle Surgery | DX: E11.42 Type 2 diabetes mellitus with diabetic polyneuropathy (principal); L60.3 Nail dystrophy | CPT/HCPCS: 11721 ==

== ENCOUNTER → 2023-12-17 08:12 | Outpatient (BNVA) | payer MEDICARE, SELFPAY | PROVIDERS: PCP Physician Assistant; Visit Provider Podiatrist Foot & Ankle Surgery | DX: E11.42 Type 2 diabetes mellitus with diabetic polyneuropathy (principal); L60.3 Nail dystrophy; Z79.4 Long term (current) use of insulin | CPT/HCPCS: 11721 ==

== ENCOUNTER → 2024-02-11 10:57 | Outpatient (BNVA) | payer MEDICARE, SELFPAY | PROVIDERS: PCP Physician Assistant; Visit Provider Internal Medicine Cardiovascular Disease | DX: I10 Essential (primary) hypertension (principal); E78.5 Hyperlipidemia, unspecified; I48.91 Unspecified atrial fibrillation; Z79.01 Long term (current) use of anticoagulants; R06.00 Dyspnea, unspecified; Z87.891 Personal history of nicotine dependence | CPT/HCPCS: 99213 ==

== ENCOUNTER → 2024-03-17 08:24 | Outpatient (BNVA) | payer MEDICARE, SELFPAY | PROVIDERS: PCP Physician Assistant; Visit Provider Podiatrist Foot & Ankle Surgery | DX: E11.42 Type 2 diabetes mellitus with diabetic polyneuropathy (principal); I73.9 Peripheral vascular disease, unspecified; Z79.4 Long term (current) use of insulin | CPT/HCPCS: 99213 ==

== ENCOUNTER → 2024-07-06 08:00 | Outpatient (BNVA) | payer MEDICARE, SELFPAY | PROVIDERS: PCP Physician Assistant; Visit Provider Podiatrist Foot & Ankle Surgery | DX: E11.42 Type 2 diabetes mellitus with diabetic polyneuropathy (principal); I73.9 Peripheral vascular disease, unspecified; L60.3 Nail dystrophy; Z79.4 Long term (current) use of insulin | CPT/HCPCS: 11721 ==

== ENCOUNTER → 2024-08-12 09:21 | Outpatient (BNVA) | payer MEDICARE, SELFPAY | PROVIDERS: PCP Physician Assistant; Visit Provider Nurse Practitioner Family | DX: I10 Essential (primary) hypertension (principal); E78.5 Hyperlipidemia, unspecified; I73.9 Peripheral vascular disease, unspecified; I48.20 Chronic atrial fibrillation, unspecified; Z87.891 Personal history of nicotine dependence; Z79.01 Long term (current) use of anticoagulants | CPT/HCPCS: 99214 ==

== ENCOUNTER 2024-09-09 09:17 | Outpatient (CLI) | payer MEDICARE, SELFPAY ==
--- NOTE | 2024-09-09 09:30 | USCV_ITS ---
Ariel Lugo Age: 73 Gender: M : 1950 Exam Date: 09/09/2024 09:29 Ordering Phys: Allison Carrion Technologist: CT Exam Location: [facility] [place]_ Indication: HISTORY: PROCEDURES: FINDINGS: On the right side, the veins were found to be easily compressible with no evidence of any thrombosis. At the level of the greater saphenous vein below the knee, there was significant reflux with a reflux time of 3.33 seconds. The venous segment was measuring 0.32 cm in diameter and was at a depth of 0.23 cm. On the left side, no the veins are found to be easily compressible. Significant venous reflux was noted at the level of the greater saphenous vein distal to the saphenofemoral junction, mid distal and below-knee segments of the greater saphenous vein the venous segments were measuring 0.49, 0.38, 0.35 and 0.4 cm in diameter respectively. These segments where at a depth of 1.3 9, 1.04, 0.65 and 0.18 cm from the surface. There were at the depth of 1.39, 1.04, 0.65 and 0.18 cm respectively for the surface CONCLUSIONS 1. Patent veins bilaterally with no evidence of any deep or superficial venous thrombosis. 2 On the right side, Significant venous reflux of greater than 500 ms were noted at the level of the greater saphenous vein below the knee. The reflux time, venous dimension and the depth from the surface are as mentioned above. 3. On the left side, Significant venous reflux of greater than 500 ms were noted in the greater saphenous vein distal to the SFJ, mid, distal and below-knee segment of the greater saphenous vein. The reflux time, was anywhere from 0.82 secs to 1.19 seconds. The venous diameter was 0.35 to 0.49 cm. These venous segments were at a depth of 1.39, 1.04, 0.65 and 0.18 cm respectively from the surface 4. No significant venous reflux in the deep veins Dr Henry Puente MD [facility] (Electronically Signed) Final Date: 10 September 2024 23:44 S
== END 2024-09-09 09:18 | disposition home or self-care (01) ==
LOC: RAD 09:18
PROVIDERS: PCP Physician Assistant; Visit Provider Nurse Practitioner Family
DX: I83.893 Varicose veins of bilateral lower extremities with other complications (principal); I87.2 Venous insufficiency (chronic) (peripheral)
CPT/HCPCS: 93970

== ENCOUNTER → 2024-10-06 07:56 | Outpatient (BNVA) | payer MEDICARE, SELFPAY | PROVIDERS: PCP Physician Assistant; Visit Provider Podiatrist Foot & Ankle Surgery | DX: E11.42 Type 2 diabetes mellitus with diabetic polyneuropathy (principal); I73.9 Peripheral vascular disease, unspecified; L60.3 Nail dystrophy; Z79.4 Long term (current) use of insulin | CPT/HCPCS: 11721 ==

== ENCOUNTER → 2025-01-05 08:01 | Outpatient (BNVA) | payer MEDICARE, SELFPAY | PROVIDERS: PCP Physician Assistant; Visit Provider Podiatrist Foot & Ankle Surgery | DX: E11.42 Type 2 diabetes mellitus with diabetic polyneuropathy (principal); L60.3 Nail dystrophy; I73.9 Peripheral vascular disease, unspecified; M21.41 Flat foot [pes planus] (acquired), right foot; M21.42 Flat foot [pes planus] (acquired), left foot; M79.671 Pain in right foot; M79.672 Pain in left foot; Z79.4 Long term (current) use of insulin | CPT/HCPCS: 11721; 99213 ==

== ENCOUNTER → 2025-02-23 16:10 | Outpatient (BNVA) | payer MEDICARE, SELFPAY | PROVIDERS: PCP Physician Assistant; Visit Provider Internal Medicine Cardiovascular Disease | DX: I48.20 Chronic atrial fibrillation, unspecified (principal); Z79.01 Long term (current) use of anticoagulants; I10 Essential (primary) hypertension; E78.5 Hyperlipidemia, unspecified; E11.9 Type 2 diabetes mellitus without complications; Z79.4 Long term (current) use of insulin; I83.93 Asymptomatic varicose veins of bilateral lower extremities; Z87.891 Personal history of nicotine dependence | CPT/HCPCS: 99214 ==

== ENCOUNTER → 2025-04-06 08:00 | Outpatient (BNVA) | payer MEDICARE, SELFPAY | PROVIDERS: PCP Physician Assistant; Visit Provider Podiatrist Foot & Ankle Surgery | DX: E11.8 Type 2 diabetes mellitus with unspecified complications (principal); L60.3 Nail dystrophy; E11.42 Type 2 diabetes mellitus with diabetic polyneuropathy; I73.9 Peripheral vascular disease, unspecified; M21.41 Flat foot [pes planus] (acquired), right foot; M21.42 Flat foot [pes planus] (acquired), left foot; M79.671 Pain in right foot; M79.672 Pain in left foot | CPT/HCPCS: 11721 ==

== ENCOUNTER → 2025-07-13 08:26 | Outpatient (BNVA) | payer MEDICARE, SELFPAY | PROVIDERS: PCP Physician Assistant; Visit Provider Podiatrist Foot & Ankle Surgery | DX: E11.42 Type 2 diabetes mellitus with diabetic polyneuropathy (principal); L60.3 Nail dystrophy; I73.9 Peripheral vascular disease, unspecified; E11.8 Type 2 diabetes mellitus with unspecified complications; M21.41 Flat foot [pes planus] (acquired), right foot; M21.42 Flat foot [pes planus] (acquired), left foot; Z79.4 Long term (current) use of insulin | CPT/HCPCS: 11721 ==